=== PATIENT | female | born 1940 | race Caucasian/White ===

== ENCOUNTER 2016-10-19 09:41 | Inpatient (IN) ==
[2016-10-19] MEDS ORDERED: NS 1,000 ML IV ONE ×2 (10:14→15:56)
[2016-10-19 10:51] LABS: MANUAL DIFF NEEDED? NO
[2016-10-19 11:01] LABS: EOS# 0.05 X1000 (0.0-0.7); EOS% 0.8 % (0.0-10.0); HEMOGLOBIN 12.7 g/dL (12.0-16.0); LYMPH# 1.62 X1000 (1.2-3.4); LYMPH% 24.6 % (20.5-51.1); MCHC 34.3 g/dL (33-37); MCV 84.5 FL (81-99); MONO# 0.41 X1000 (0.11-0.59); MONO% 6.2 % (1.7-9.3); MPV 10.7 FL (7.4-10.4); NEUT% 68.4 % (42.2-75.2); PLT 183 X1000 (130-400); RBC 4.38 XMIL (4.2-5.4)
[2016-10-19 11:20] LABS: ALBUMIN 3.5 g/dL (3.5-5.0); MAGNESIUM 1.6 mg/dL (1.5-2.7); POTASSIUM 4.6 mmol/L (3.5-5.1); TOTAL BILIRUBIN 0.5 mg/dL (0.20-1.00); TOTAL PROTEIN 5.7 g/dL (6.3-8.3)
[2016-10-19 12:02] LABS: URINE SOURCE CLEAN CATCH
[2016-10-19 12:20] LABS: BILIRUBIN URINE SMALL (NEGATIVE); BLOOD URINE TRACE-LYSED (NEGATIVE); CLARITY CLEAR (CLEAR); COLOR ORANGE; GLUCOSE URINE 100 mg/dL (NEGATIVE); LEUKOCYTES URINE MODERATE (NEGATIVE); NITRITE URINE POSITIVE (NEGATIVE); PH URINE 5.5; PROTEIN URINE 100 mg/dL (NEGATIVE); SP GRAVITY URINE 1.025
[2016-10-19] MEDS ORDERED: ROCEPHIN 1 GM/NS 1 GM/50 ML IVPB IV ONE (12:28)
[2016-10-19 12:41] LABS: URINE CAST NONE SEEN /LPF; URINE CRYSTAL NONE SEEN /HPF; URINE CULTURE NEEDED? YES; URINE EPITHELIAL CELLS <10 /HPF (<10); URINE RBC <10 /HPF (<10)
--- NOTE | 2016-10-19 14:49 | PROVIDER DOCUMENTATION ---
This chart was entered by Kathy Porras Scribe, acting as scribe for Ronan Matos MD. HPI-General Adult - General Chief Complaint: Diarrhea Stated Complaint: DIARRHEA Time Seen by Provider: 10/19/16 09:46 Source: patient Allergies/Adverse Reactions: Patient Allergies Allergy/AdvReac Type Severity Reaction Status Date / Time No Known Allergies Allergy Verified 10/19/16 10:11 Home Medications: Home Medication List Medication Instructions Recorded Confirmed Last Taken Type ATORVAstatin [Lipitor] 10 mg PO DAILY 10/19/16 10/19/16 10/18/16 History Anastrozole [Arimidex] 1 mg PO DAILY 10/19/16 10/19/16 10/18/16 History Aspirin 81 mg PO DAILY 10/19/16 10/19/16 10/18/16 History Carvedilol 25 mg PO BID 10/19/16 10/19/16 10/18/16 History Clonidine HCl [Clonidine HCl] 0.1 mg PO DAILY 10/19/16 10/19/16 10/19/16 History Clopidogrel Bisulfate [Plavix] 75 mg PO DAILY 10/19/16 10/19/16 10/18/16 History Colchicine 0.3 mg PO DAILY 10/19/16 10/19/16 10/18/16 History Cyanocobalamin (Vitamin B-12) 1,000 mcg PO DAILY 10/19/16 10/19/16 10/18/16 History [Vitamin B12] Cyclosporine 0.05% Oph Drops 1 each BOTH EYES BID 10/19/16 10/19/16 10/18/16 History [Restasis 0.05% Oph Drops] Digoxin 125 mcg PO DAILY 10/19/16 10/19/16 10/18/16 History Donepezil [Aricept] 10 mg PO DAILY 10/19/16 10/19/16 10/18/16 History Duloxetine [Cymbalta] 60 mg PO DAILY 10/19/16 10/19/16 10/18/16 History Insulin Detemir [Levemir] 36 unit SUBQ DAILY 10/19/16 10/19/16 10/18/16 History Insulin Lispro [Humalog] 15 unit SQ AC 10/19/16 10/19/16 10/19/16 History Iron,Carbonyl/Ascorbic Acid [Iron 1 tab PO DAILY 0410/19/16 10/18/16 History 100-Vitamin C Tablet] Lisinopril [Lisinopril] 20 mg PO DAILY 10/19/16 10/19/16 10/18/16 History Nifedipine E.r. [Adalat cc] 30 mg PO DAILY 10/19/16 10/19/16 10/18/16 History Pantoprazole [Protonix] 40 mg PO DAILY 10/19/16 10/19/16 10/18/16 History Tramadol HCl [Ultram] 50 mg PO Q6HR PRN 10/19/16 10/19/16 10/18/16 History - History of Present Illness -Gen Adult Nature of Presenting Problems: PT IS A 76YOF PRESENTING TO THE ED C/O DIARRHEA. PT STATES SHE HAS A HX OF GALLBLADDER DZ AND SURGERY, FOLLOWED BY THE FLU THEN PNEUMONIA, PT STATES SHE NOTICED BLOOD IN HER BM A FEW WEEKS PRIOR AND DIARRHEA HAS BEEN INTERMITTENT FOR SEVERAL WEEKS NOW AND GETTING WORSE. PT STATES DECREASED APPETITE AND WEAKNESS. NO OTHER COMPLAINTS AT THIS TIME. PT WAS IS REHAB 2 WEEKS AGO AND WHEN DC'D SHE SAW THE BLOOD IN BM BUT NONE SINCE. Location of Pain/Injury: reports: abdomen Pain Radiation: reports: no radiation Quality of Pain: reports: aching Severity: reports: mild Onset/Duration: reports: gradual, other (SEVERAL WEEKS) Timing: reports: still present, intermittent Context/Activities at Onset: reports: light activity Modifying Factors: improves with: nothing Associated Symptoms: reports: diarrhea, fatigue, loss of appetite, malaise, weakness. denies: back/neck pain, chest pain, constipation, nausea, vomiting, trouble walking Similar Symptoms Previously?: Yes (CHOLITIS) Recently seen or treated by another doctor?: No Review of Systems - Adult - REVIEW OF SYSTEMS - ADULT Constitutional: reports: see HPI, fatique. denies: chills, fever Eyes: reports: no symptoms reported Ears, Nose, Mouth & Throat: reports: no symptoms reported Cardiovascular: reports: no symptoms reported Respiratory: reports: no symptoms reported Gastrointestinal: reports: see HPI, abdominal pain, diarrhea, poor appetite. denies: constipation, nausea, vomiting Genitourinary: reports: no symptoms reported Musculoskeletal: reports: no symptoms reported Integumentary: reports: no symptoms reported Neurological: reports: no symptoms reported Psychiatric: reports: no symptoms reported Endocrine: reports: no symptoms reported Hematologic/Lymphatic: reports: no symptoms reported Allergic/Immunologic: reports: no symptoms reported All Other Systems: Reviewed and Negative Past History - Adult - PAST MEDICAL HISTORY-ADULT Review of Records: reports: Old Records Reviewed, Nursing Assessment Review, Medications Reviewed, Social history reviewed & non-contributory. Major Childhood Illnesses: reports: denies history Cardiovascular: reports: CAD, CHF, HTN, hyperlipidemia, DC Respiratory: reports: sleep apnea Gastrointestinal: reports: colitis, GERD, pancreatitis Obstetrical/Gynecological: reports: denies history Genitourinary: reports: denies history Musculoskeletal: reports: denies history Neurological: reports: CVA Psychiatric: reports: anxiety Endocrine/Immune: reports: Diabetes, thyroid disorder Other Conditions: reports: other - PRIOR SURGERIES/PROCEDURES Surgical/Procedure History: reports: recent surgery, hysterectomy, tonsillectomy , hernia repair, other (mastectomy ) - PRIOR HOSPITALIZATIONS Prior Hospitalizations: reports: for other non-related - IMMUNIZATION STATUS Childhood Immunizations: See Nurse Assessment Flu Vaccine: See Nurse Assessment - FAMILY HISTORY Family History: reviewed, not pertinent Physical Exam-General - PHYSICAL EXAM-ADULT Initial Vital Signs Reviewed: Yes - CONSTITUTIONAL General Appearance: appears well, alert, mild distress, anxious. negative: no apparent distress - EYES Eyes: PERRL/EOMI, pink conjunctivae, fundi clear, no AV nicking - HEAD, EARS, NOSE, MOUTH & THROAT HENMT: normocephalic/atraumatic, moist mucous membranes, normal ENT inspection, TMs normal, pharynx normal - NECK Neck: non-tender, full range of motion, supple, normal inspection - RESPIRATORY Respiratory: chest non-tender, lungs clear, normal breath sounds, no pleuratic chest pain, no respiratory distress, no accessory muscle use - CARDIOVASCULAR Cardiovascular: normal peripheral pulses, regular rate, rhythm, no edema, no gallop, no JVD, no murmur - GASTROINTESTINAL (ABDOMEN) Abdominal Exam: normal bowel sounds, soft, no organomegaly, no pulsatile mass, tenderness. 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 as tested, grossly normal, no motor/sensory deficits - PSYCHIATRIC Psych/Mental Status: normal thought content, normal thought process, oriented x 3, anxious Progress - PLAN OF CARE/RESULTS Progress/Plan/Lab Results: Vital Signs - 8 hr 10/19/16 10:07 Temperature 97.5 F L Pulse Rate 63 Respiratory Rate 18 Blood Pressure 128/69 O2 Sat by Pulse Oximetry 97 Orders Category Date Time Status Saline Loc DIRECTED Care 10/19/16 10:14 Active NPO Diet 10/19/16 10:14 Active AMYLASE [CHEM] Stat Lab 10/19/16 10:14 Uncollected CBC WITH ELECTRONIC DIFF [HEME] Stat Lab 10/19/16 10:14 Uncollected COMPREHENSIVE METABOLIC PANEL [CHEM] Stat Lab 10/19/16 10:14 Uncollected LIPASE [CHEM] Stat Lab 10/19/16 10:14 Uncollected MAGNESIUM [CHEM] Stat Lab 10/19/16 10:14 Uncollected TROPONIN T Stat Lab 10/19/16 10:14 Uncollected URINALYSIS W/POSS RFLX CULT [URINALYSIS] Stat Lab 10/19/16 10:14 Uncollected 0.9% Sodium Chloride Inj [Ns] 1,000 ml Med 10/19/16 10:14 Active IV 500 mls/hr Result Diagrams: 10/19/16 10:33 10/19/16 10:33 - CONSULTS/PCP/HOSPITALIST Notification Time Discussed: 15:57 Reason/Comments: Admit to Dr. Hyman Consult Disposition: Admit Departure - Departure Time of Disposition Decision: 15:58 DIAGNOSIS: Generalized weakness, Elevated lipase, Dehydration Diarrhea Qualifiers: Diarrhea type: unspecified type Qualified Code(s): R19.7 - Diarrhea, unspecified Disposition: ADMITTED INPATIENT 09 Certified Medical Emergency: Emergent Condition: Stable Referrals and Follow-Ups: Aron Espinal MD [Primary Care Provider] - This chart was documented by the indicated scribe, (Kathy Porras Scribe) and accurately reflects the services I performed and decisions made by , Ronan Matos MD, as attested by the provider's signature.
--- NOTE | 2016-10-19 15:07 | Diag Imaging Result Document ---
PROCEDURE NAME: RENAL STONE SEARCH - 10/19/2016 CT RENAL STONE SEARCH WITHOUT CONTRAST: A dose-reduction protocol was used. COMPARISON: Compared with the with contrast CT abdomen and pelvis of 2016. FINDINGS: There is no hydronephrosis or perinephric edema identified. There is an apparent tiny nonobstructing stone at the lower left kidney. There is no other renal stone identified. There is a left anterior pelvic wall hernia which contains part of the left anterior aspect of the urinary bladder, similar to the previous exam. The spleen is mildly prominent and contains a low-density lesion, similar to the previous exam. There is no obvious bowel obstruction. There is no free air. IMPRESSION: Apparent tiny nonobstructing stone in lower left kidney. No obstructing renal stone. No hydronephrosis. Left anterior pelvic wall hernia which contains part of the anterior urinary bladder, similar to the previous exam. Mildly prominent spleen which contains a low-density lesion , similar to the previous exam. If other occult abnormality is suspected clinically, contrast-enhanced exam could be considered. [facility]ITAL[facility]asha[facility]
--- NOTE | 2016-10-19 18:09 | HISTORY AND PHYSICAL ---
CHIEF COMPLAINT: Diarrhea and weakness. HISTORY OF PRESENT ILLNESS: A 76-year-old white female patient not feeling well last 3 days. The patient had diarrhea multiple times, watery stool. No blood or mucus in the stool. The patient did have some abdominal pain which was diffuse. The patient was feeling very weak, at times unsteady. The patient was taking Imodium with partial relief. The patient came to the emergency room. Evaluated by ER physician. Initial blood pressure was low normal but then her blood pressure was going up. Her workup in the ER did reveal elevated lipase. Patient was very weak. Workup in the ER also revealed UTI. The patient was symptomatic. Patient lives by herself. High risk for fall. Has uncontrolled diabetes. Concern was about hypoglycemia and we decided to admit the patient for further care. The patient recently discharged from longterm after rehab. The patient does have very labile blood pressure and labile blood sugar. The patient did have chills, low-grade fever last 2-3 days. Mild cough. No expectoration. Denied any hemoptysis. No typical chest pain, palpitation, orthopnea or PND. The patient was feeling weak all over. Vague abdominal pain. Mild dysuria. No gross hematuria. No vaginal discharge. Unquantified weight loss. Oral intake was poor. No heat or cold intolerance. No focal numbness, tingling, weakness. No leg swelling. No heat or cold intolerance. No major hypoglycemic episode. No seizure-type episode. No further history available at this time. ALLERGIES: No known drug allergy. HOME MEDICATIONS: Include the patient is on Lipitor, Coreg, Plavix, colchicine, vitamin B12, cyclosporine, Lanoxin, Aricept, Cymbalta, Levemir, iron supplement, lisinopril, nicardipine, Prilosec. PAST MEDICAL HISTORY: Significant for longstanding diabetes mellitus complicated by peripheral neuropathy, hypertension, hyperthyroidism, chronic diarrhea, recent cholecystectomy, recurrent pancreatitis, history of breast cancer, CVA with minimal right-sided weakness, dementia, iron- deficiency anemia, gout, osteoarthritis, generalized weakness, recurrent UTI, hyperlipidemia. PERSONAL HISTORY: . Lives by herself. Nonsmoker. Denied alcohol or substance abuse. FAMILY HISTORY: Significant for coronary artery disease, hyperlipidemia, stroke and diabetes. PHYSICAL EXAMINATION: GENERAL: Elderly white female patient in mild distress. VITAL SIGNS: Her initial blood pressure 128/69, her blood pressure went up to 184/73, pulse 63, respirations 20, temperature 98.2 degrees. SKIN: Normal turgor. No rash or petechiae. HEENT: Head atraumatic, normocephalic. [place] conjunctivae. Anicteric sclerae. Extraocular muscle movement normal. Fundus cannot be penetrated. Good oral hygiene. Dry oral mucosa. Ears and nose benign. NECK: Supple. No JVD, thyromegaly or lymphadenopathy. CHEST: Bilateral good air entry present. No rales. Few basal crepitations. CARDIOVASCULAR: S1 and S2 heard. No gallop or thrill. ABDOMEN: Soft, globular. Mild tenderness left lower quadrant and epigastrium. No guarding or rigidity. RECTAL: Exam deferred. EXTREMITIES: No cyanosis, clubbing. No acute DVT. AIRPORT RAMP AGENT: Alert, awake able to move all 4 limbs. Minimal weakness right upper limb. LABORATORY DATA: Revealed hemoglobin 12.7, hematocrit 37, WBC count 6.59, platelet count was 183,000. Sodium 133, potassium 4.6, BUN 21, creatinine 1.1. Amylase was 494, lipase 556. Urinalysis. Nitrite was positive, moderate WBC. The patient had renal CT done which revealed tiny nonobstructing stones in the lower left kidney, left anterior pelvic wall hernia which contained part of the anterior urinary bladder, similar to previous exam, mildly prominent spleen. CONSIDERATION: 1. Diarrhea, could be due to colitis. 2. Urinary tract infection. Blood work suggestive of pancreatitis. 3. Diabetes mellitus. 4. Hypertension. 5. Hyperlipidemia. 6. Gastritis and reflux disease. 7. History of cerebrovascular accident. 8. Weakness. 9. History of breast cancer. 10. Clinical dehydration. PLAN: Admit the patient. IV antibiotics. Urine culture, stool workup. Monitor Accu-Chek. Empirically started patient on Flagyl and Rocephin. Monitor for hypoglycemia. Overall plan discussed with the patient and she is in agreement. cc: Aron Espinal MD
[2016-10-19] MEDS: RESTASIS 0.05% OPH DROPS BOTH EYES SCH (20:52)
[2016-10-19] MEDS: COREG PO SCH (20:52)
[2016-10-19] MEDS: LIPITOR PO SCH (20:52)
[2016-10-19] MEDS: PROTONIX IV SCH (20:53)
[2016-10-19] MEDS: SODIUM CHLORIDE 0.9% INJ SCH (20:53)
[2016-10-19] MEDS: HUMALOG SUBQ SCH (23:01)
[2016-10-20] MEDS ORDERED: CATAPRES PO PRN (06:57)
[2016-10-20] MEDS ORDERED: INSULIN PEN NEEDLES ONE (07:29)
[2016-10-20 07:35] LABS: MANUAL DIFF NEEDED? NO
--- NOTE | 2016-10-20 07:36 | PROGRESS NOTE ---
DATE: 10/20/2016 SUBJECTIVE: Ms. Roth is feeling some better today. She denied any nausea or vomiting. No diarrhea. Denied any chest pain. Her blood pressure was staying high. The patient admitted with diarrhea. Stool for occult blood was negative. Other stool workup result is pending. PHYSICAL EXAMINATION: Vital Signs: Her vital signs reviewed. Neck: Supple. No JVD. Lungs: Bibasilar crepitations. Heart: S1 and S2 heard. Abdomen: Soft, globular. Bowel sounds present. MORTGAGE CLERK: Alert, awake. Able to move all 4 limbs. CONSIDERATIONS: 1. Diarrhea. 2. Pancreatitis. 3. Hypertension. 4. Diabetes mellitus. 5. Gastritis and reflux disease. 6. Urinary tract infection. PLAN: I am going to start the patient on Flagyl empirically. Continue rest of the treatment. Optimize blood pressure medicine. Physical therapy. Overall plan discussed with the patient and she is in agreement. cc: Aron Espinal MD
[2016-10-20 07:47] LABS: AMYLASE 117 U/L (20-200); DIGOXIN 1.4 ng/mL (0.9-2.0); HDL 41 mg/dL (45-65); LDL 64 mg/dL; LIPASE 93 U/L (13-60); MAGNESIUM 1.5 mg/dL (1.5-2.7); TRIGLYCERIDES 114 mg/dL (35-135); VLDL 23 mg/dL
[2016-10-20 07:49] LABS: BASO% 0.2 % (0.0-0.8); EOS# 0.14 X1000 (0.0-0.7); HEMATOCRIT 37.3 % (37.0-47.0); LYMPH% 36.1 % (20.5-51.1); MCH 29.2 PG (27-31); MCHC 34.9 g/dL (33-37); MCV 83.8 FL (81-99); MONO# 0.34 X1000 (0.11-0.59); MONO% 7.2 % (1.7-9.3); MPV 10.6 FL (7.4-10.4); NEUT% 53.5 % (42.2-75.2); PLT 168 X1000 (130-400); RBC 4.45 XMIL (4.2-5.4)
[2016-10-20 07:52] LABS: AGAP 13; ALBUMIN 3.4 g/dL (3.5-5.0); ALKALINE PHOSPHATASE 138 U/L (32-104); BUN 15 mg/dL (8-22); CALCIUM 8.6 mg/dL (8.8-10.2); CHLORIDE 103 mmol/L (98-107); COSMO 276; GOT 54 U/L (10-30); GPT 59 U/L (10-36); SODIUM 138 mmol/L (136-145); TCO2 22 mmol/L (25-35)
[2016-10-20 08:00] LABS: FREE T4 1.6 ng/dL (0.93-1.70)
[2016-10-20 08:24] LABS: HEMOGLOBIN A1C 8.1 % (4.8-6.0)
[2016-10-20] MEDS ORDERED: LEVEMIR SUBQ SCH ×2 (09:00)
[2016-10-20] MEDS ORDERED: ADALAT CC PO SCH (09:00)
[2016-10-20] MEDS ORDERED: PRINIVIL PO SCH (09:00)
[2016-10-20] MEDS: CYMBALTA PO SCH (09:49)
[2016-10-20] MEDS: COLCRYS PO SCH (09:50)
[2016-10-20] MEDS: ADALAT CC PO SCH (09:50)
[2016-10-20] MEDS: COREG PO SCH ×2 (09:50→22:00)
[2016-10-20] MEDS: ASPIRIN PO SCH (09:52)
[2016-10-20] MEDS: ARICEPT PO SCH (09:52)
[2016-10-20] MEDS: PLAVIX PO SCH (09:52)
[2016-10-20] MEDS: PRINIVIL PO SCH ×2 (09:52→22:00)
[2016-10-20] MEDS: ICAR-C PO SCH (09:52)
[2016-10-20] MEDS: RESTASIS 0.05% OPH DROPS BOTH EYES SCH ×2 (09:53→22:10)
[2016-10-20] MEDS: VITAMIN B-12 PO SCH (09:53)
[2016-10-20] MEDS: ARIMIDEX PO SCH (09:53)
[2016-10-20] MEDS: LANOXIN PO SCH (09:55)
[2016-10-20] MEDS: LOVENOX SUBQ SCH (09:59)
[2016-10-20] MEDS: HUMALOG SUBQ SCH ×3 (11:00→22:21)
[2016-10-20] MEDS: ROCEPHIN 1 GM/NS 1 GM/50 ML IVPB IV SCH (14:23)
[2016-10-20] MEDS: FLAGYL 500 MG/NS 500 MG/100 ML IVPB IV SCH ×2 (15:27→22:20)
[2016-10-20] MEDS: PROTONIX IV SCH (20:00)
[2016-10-20] MEDS: LIPITOR PO SCH (22:00)
[2016-10-20] MEDS: SODIUM CHLORIDE 0.9% INJ SCH (22:07)
[2016-10-21] MEDS: HUMALOG SUBQ SCH ×5 (06:16→22:26)
[2016-10-21] MEDS: FLAGYL 500 MG/NS 500 MG/100 ML IVPB IV SCH ×3 (06:23→23:54)
[2016-10-21] MEDS ORDERED: MAGNESIUM SULFATE 2 GM/S.W.I. 2 GM/50 ML IVPB IV ONE (06:53)
[2016-10-21] MEDS ORDERED: LEVEMIR SUBQ SCH (06:56)
--- NOTE | 2016-10-21 07:20 | PROGRESS NOTE ---
DATE: 10/21/2016 SUBJECTIVE: Ms. Roth is doing fair. The patient does have mild nausea, no vomiting. Her diarrhea is better. No high-grade fever, chills. Her blood pressure is still staying high. The patient is on Procardia, Coreg, clonidine, lisinopril. I am going to add diuretics today. No chest pain. OBJECTIVE: Vital Signs: Reviewed. Neck: Supple. No JVD. Lungs: Bilateral good air entry present. CVS: S1 and S2 heard. Abdomen: Soft, globular. Bowel sounds present. MOLDING AND TRIM INSTALLER: Alert, awake. Able to move all 4 limbs. Her Accu-Chek results reviewed. CONSIDERATION/PLAN: 1. The patient admitted with recurrent pancreatitis, diarrhea. Since she is in the hospital, she did not have any stool, so we were not able to check her for Clostridium difficile toxin or colitis. 2. The patient does have a urinary tract infection but urine culture was no growth. The patient is on Rocephin. I empirically started patient on Flagyl. 3. Emergent hypertension. I am optimizing her blood pressure management. 4. Diabetes mellitus. I am gradually increasing her insulin. 5. The patient does have history of breast cancer. 6. Cerebrovascular accident. 7. Gastritis. 8. Possible gastroparesis. Overall plan discussed with the patient and she is in agreement. cc: Aron Espinal MD
[2016-10-21 07:33] LABS: ALBUMIN 3.2 g/dL (3.5-5.0); CALCIUM 8.3 mg/dL (8.8-10.2); POTASSIUM 4.1 mmol/L (3.5-5.1); TOTAL BILIRUBIN 0.25 mg/dL (0.20-1.00); TOTAL PROTEIN 5.7 g/dL (6.3-8.3)
[2016-10-21] MEDS ORDERED: BUMEX PO SCH (09:00)
[2016-10-21] MEDS: LOVENOX SUBQ SCH (10:08)
[2016-10-21] MEDS: COLCRYS PO SCH (10:08)
[2016-10-21] MEDS: RESTASIS 0.05% OPH DROPS BOTH EYES SCH ×2 (10:08→23:43)
[2016-10-21] MEDS: BUMEX PO SCH ×2 (10:08→23:44)
[2016-10-21] MEDS: LANOXIN PO SCH (10:09)
[2016-10-21] MEDS: COREG PO SCH ×2 (10:09→23:43)
[2016-10-21] MEDS: ADALAT CC PO SCH (10:09)
[2016-10-21] MEDS: PLAVIX PO SCH (10:09)
[2016-10-21] MEDS: PRINIVIL PO SCH ×2 (10:10→23:43)
[2016-10-21] MEDS: ICAR-C PO SCH (10:10)
[2016-10-21] MEDS: VITAMIN B-12 PO SCH (10:10)
[2016-10-21] MEDS: ARICEPT PO SCH (10:10)
[2016-10-21] MEDS: CYMBALTA PO SCH (10:10)
[2016-10-21] MEDS: ASPIRIN PO SCH (10:10)
[2016-10-21] MEDS: ARIMIDEX PO SCH (10:11)
--- NOTE | 2016-10-21 12:50 | Diag Imaging Result Document ---
PROCEDURE NAME: US ABDOMEN-COMPLETE - 10/21/2016 ULTRASOUND ABDOMEN, COMPLETE: COMPARISON: CT abdomen and pelvis 10/19/2016. FINDINGS: The gallbladder is absent. The common bile duct measures 5.6 mm which is normal. The liver, pancreas, and both kidneys are normal. There is a large calcification in the spleen measuring 1.5 cm stable from the prior CT. No other abnormality visible in the spleen by ultrasound. Aorta, IVC, and main portal vein are patent. Spleen size is 11.7 x 10.5 x 4.1 cm. IMPRESSION: No acute abnormality.
[2016-10-21] MEDS: ROCEPHIN 1 GM/NS 1 GM/50 ML IVPB IV SCH (16:46)
[2016-10-21] MEDS: MIRALAX PO SCH ×2 (16:54→23:41)
--- NOTE | 2016-10-21 18:15 | CONSULTATION ---
DATE OF CONSULTATION: 10/21/2016 REASON FOR CONSULTATION: Recurrent pancreatitis. HISTORY OF PRESENT ILLNESS: Ms. Roth is a 76-year-old female who has being admitted on 10/19/2016 with symptoms of abdominal pain in the periungual region, diarrhea, weakness and dehydration. On admission, she was noted to have elevated lipase of 556 and amylase of 494 consistent with pancreatitis. The patient had 4 episodes of pancreatitis so far. This is the 4th episode. The 1st episode was in April and prior to this one, the last episode was in August. After the August episode she had extensive workup which showed evidence of gallbladder dysfunction and she had a cholecystectomy done by Dr. Chisholm in August 2016. Postoperatively she had gone to the rehab and after release from rehab she developed flu, lasted for 2 weeks followed by bronchopneumonia followed by complaints of abdominal pain and diarrhea. The patient denies any history of alcohol. She did complain of some low-grade fever and chills at home prior to admission. Since being in the hospital she has been given IV fluids and conservative management and her amylase and lipase have trended down. She denies any vomiting, nausea, vomiting blood or passing blood in the stools. Prior to admission she had diarrhea but since being in the hospital the last 2 days she has not had a bowel movement. She denies noticing any black stools or blood in the stools in the past. PAST MEDICAL HISTORY: 1. Long-standing diabetes mellitus complicated by diabetic peripheral neuropathy. 2. Hypertension. 3. Hypothyroidism. 4. Chronic diarrhea. 5. Gallbladder dysfunction requiring cholecystectomy in August 2016. 6. Recurrent pancreatitis 4th episode on this admission. 7. History of breast cancer. 8. CVA with minimal right-sided weakness. 9. Dementia. 10. Iron deficiency anemia. 11. Gout. 12. Osteoarthritis. 13. Recurrent UTIs. 14. Hyperlipidemia. PAST SURGICAL HISTORY: Cholecystectomy. PERSONAL HISTORY: She is a . She lives by herself. She is a nonsmoker. Denies alcohol, tobacco, illicit drug abuse. FAMILY HISTORY: Noncontributory. Denies history of recurrent pancreatitis in the family or pancreatic cancer in the family. REVIEW OF SYSTEMS: Denies any current fevers, rigors, chills, chest pain, shortness of breath, dyspnea. Denies any genitourinary complaints. Denies history of vomiting or passing blood in the stools. Her abdominal pain is improving since admission. MEDICATIONS IN THE HOSPITAL INCLUDE: Anastrozole, aspirin, atorvastatin, bisacodyl, Bumex, carvedilol, clonidine, Plavix, Colchicine, vitamin B12, cyclosporine, Digoxin, duloxetine, donepezil which is Aricept and duloxetine which is Cymbalta, Lovenox, metronidazole, insulin, detemir, Levemir and sliding scale Humalog, Iron C b.i.d., lisinopril, nifedipine ER Protonix once daily, MiraLAX b.i.d., ceftriaxone and magnesium sulfate. She is currently on a diabetic diet. PHYSICAL EXAMINATION: Vital Signs: Temperature 97.7 degrees, pulse rate of 74 , respiratory rate 18, blood pressure 118/58, saturating 90% on room air. Body weight of 145 pounds. BMI of 23.4 kg. General: Moderately well-nourished, lying in bed, in no acute distress. HEENT: No pallor. No icterus. Pupils equal, react to light. Neck: Supple. Chest: Decreased breath sounds. Heart: Regular rhythm. No murmur. Abdomen: Mild discomfort. No rebound or guarding. Bowel sounds are present, hypoactive. No rebound. No guarding. No hepatosplenomegaly. Extremities: No cyanosis, clubbing, edema. Neurologic: She is alert, awake. Oriented. LABS: Hemoglobin and hematocrit is 13 and 37.3, white count 4.71, platelet count 160,000. MCV of 83.8. Sodium 130, potassium 4.1, chloride 100, bicarb 22, anion gap of 14, BUN of 18, creatinine 1, glucose of 281. Total bilirubin is 0.25. AST 23, ALT 40. Alkaline phosphatase was 118. Total protein 5.7, albumin of 3.2. Her amylase was 494 on 10/19 and lipase of 996 on 10/19 and lipase has now trended down to 93 yesterday. Urinalysis showing positive nitrites, positive white cells suggesting UTI. Digoxin was 1.4. Her urine culture showing no growth. Stools showing negative occult blood. Had a renal CT done which showed stone in the lower left kidney , nonobstructing renal stones. No hydronephrosis. Left anterior pelvic wall hernia which contains part of the urinary bladder anterior wall similar to previous exam. Mildly prominent spleen which contained a low-density lesion similar to previous exam. Her intraoperative cholangiogram done on 08/26/[address] Chisholm which showed free flow of dye into the duodenum without evidence of any extrahepatic stones or obstruction and dye also filled the pancreatic duct which is nondilated. IMPRESSION AND PLAN: 1. Recurrent pancreatitis of unclear etiology. Suspect choledocholithiasis versus medications. Her medications at home include Aricept, Cymbalta, Prozac which can cause potential pancreatitis. 2. UTI. 3. Constipation and diarrhea. RECOMMENDATIONS: We will continue on IV fluids, we will keep her on low-fat diet. We will keep a good control of diabetes. We will try to avoid potential pancreatotoxic medications like Aricept, Cymbalta, Prozac all for now if okay with the primary team to avoid recurrent pancreatitis. We will also order ultrasound of the abdomen to evaluate for common bile duct and pancreas duct for any evidence of any retained stones. If the above workup is unrevealing, then we may need a magnetic resonance cholangiopancreatography to evaluate for any kind of stones in the distal common bile duct or pancreatic duct. Based on the above we will decide if the patient will need ERCP as an outpatient. The patient will be on low-fat diet and we will keep the patient on Protonix once daily for GI prophylaxis. We will keep her on bowel regimen with MiraLAX twice daily and Dulcolax at bedtime. The above plan was discussed with the patient. All questions answered. cc: MD Aron Doty MD MTDD
[2016-10-21] MEDS ORDERED: DULCOLAX PR SCH (21:00)
[2016-10-21] MEDS: LIPITOR PO SCH (23:43)
[2016-10-21] MEDS: SODIUM CHLORIDE 0.9% INJ SCH (23:48)
[2016-10-21] MEDS: PROTONIX IV SCH (23:48)
[2016-10-22] MEDS: FLAGYL 500 MG/NS 500 MG/100 ML IVPB IV SCH ×3 (02:23→17:34)
[2016-10-22] MEDS ORDERED: LEVEMIR SUBQ SCH (07:06)
[2016-10-22 07:52] LABS: ALBUMIN 3.5 g/dL (3.5-5.0); CALCIUM 8.7 mg/dL (8.8-10.2); POTASSIUM 4.1 mmol/L (3.5-5.1); TOTAL BILIRUBIN 0.28 mg/dL (0.20-1.00); TOTAL PROTEIN 6.1 g/dL (6.3-8.3)
--- NOTE | 2016-10-22 08:10 | PROGRESS NOTE ---
DATE: 10/22/2016 SUBJECTIVELY: Ms. Roth is feeling better and tolerating food well. No diarrhea, nausea or vomiting. No high-grade fever or chills. Blood pressure doing better. Denied any chest pain. The patient is ambulating well. OBJECTIVE: Her vital signs reviewed. Lungs with bilateral good air entry present. CVS: S1 and S2 heard. Abdomen: Soft, globular. Bowel sounds present. Extremities: No cyanosis or clubbing. No acute DVT. MARINE CHRONOMETER ASSEMBLER: Alert, awake and able to move all 4 limbs. CONSIDERATION: Recurrent pancreatitis. Retail Office Associate recommendation noted. Abdominal ultrasound results reviewed. PLANS: 1. I am going to discontinue Aricept, decrease Cymbalta to 30 mg. 2. Uncontrolled hypertension, I added Bumex. Blood pressure doing better. We will continue current treatment. 3. Diabetes mellitus. I am going to increase her Lantus gradually. 4. History of CVA. 5. Breast cancer. 6. Peripheral neuropathy. 7. Osteoarthritis. 8. Morning blood work result is pending. 9. We will continue current treatment. If clinical condition permits, we will plan discharging patient home tomorrow. I talked to patient about staying in assisted living or halfway. Also discussed with her son, she is high risk for fall and injuring herself but patient refused. The son is in agreement. cc: Aron Espinal MD
[2016-10-22] MEDS ORDERED: CYMBALTA PO SCH (09:00)
[2016-10-22 10:21] LABS: HEPATITIS PROFILE ACUTE SEE COMMENTS
--- NOTE | 2016-10-22 10:41 | Diag Imaging Result Document ---
PROCEDURE NAME: MRI ABDOMEN W/WO CONTRAST - 10/21/2016 MRI ABDOMEN WITHOUT AND WITH INTRAVENOUS CONTRAST WITH MRCP: COMPARISON: CT abdomen and pelvis 10/19/2016, 06/16/2013. FINDINGS: The gallbladder is absent. There is no dilation of the biliary tree. The main pancreatic duct is normal. Pancreatic anatomy is normal. The liver parenchyma is normal. There is a small nodule in the spleen measuring about 19.5 mm. This is hyperintense on the T2 weighted images and ISO hypointense on T1 weighted images. The signal void in the inferior pole of the spleen corresponds with a large benign calcification. IMPRESSION: 1. Slight interval increase in size of the hypoenhancing nodule in the spleen. This is changing very slowly indeed. This may represent a neoplasm or a chronic inflammatory process such as a small fungal abscess. 2. No abnormality of the pancreaticobiliary tree.
[2016-10-22] MEDS: COLCRYS PO SCH (11:25)
[2016-10-22] MEDS: VITAMIN B-12 PO SCH (11:35)
[2016-10-22] MEDS: ADALAT CC PO SCH (11:35)
[2016-10-22] MEDS: COREG PO SCH (11:36)
[2016-10-22] MEDS: ICAR-C PO SCH (11:36)
[2016-10-22] MEDS: BUMEX PO SCH (11:36)
[2016-10-22] MEDS: ARIMIDEX PO SCH (11:40)
[2016-10-22] MEDS: RESTASIS 0.05% OPH DROPS BOTH EYES SCH (11:42)
[2016-10-22] MEDS: MIRALAX PO SCH (11:43)
[2016-10-22] MEDS: PRINIVIL PO SCH (11:43)
[2016-10-22] MEDS: LOVENOX SUBQ SCH (11:43)
[2016-10-22] MEDS: PLAVIX PO SCH (11:43)
[2016-10-22] MEDS: ASPIRIN PO SCH (11:54)
[2016-10-22] MEDS: HUMALOG SUBQ SCH ×3 (12:22→16:33)
[2016-10-22] MEDS: LANOXIN PO SCH (12:33)
[2016-10-22] MEDS: ROCEPHIN 1 GM/NS 1 GM/50 ML IVPB IV SCH (17:34)
[2016-10-22 19:33] VITALS: BP 157/66
--- NOTE | 2016-11-18 21:07 | DISCHARGE SUMMARY ---
ADMISSION DATE: 10/19/2016 DISCHARGE DATE: 10/22/2016 FINAL DISCHARGE DIAGNOSES: 1. Colitis. 2. Urinary tract infection. 3. Recurrent pancreatitis. 4. Diabetes mellitus. 5. Hypertension. 6. Hyperlipidemia. 7. Gastritis and reflux disease. 8. History of cerebrovascular accident. 9. Breast cancer. 10. Weakness. 11. Dehydration. 12. Abnormal MRI of the spleen. 13. Iron-deficiency anemia. 14. Osteoarthritis. 15. History of gout. HOSPITAL COURSE: Ms. Roth is a 76-year-old, white female patient admitted with abdominal discomfort, diarrhea, weakness, clinical dehydration, vague abdominal pain. Her initial lipase and amylase were elevated consistent with pancreatitis. The patient was evaluated in the ER and admitted for further care. The patient also had some vague tenderness in the left lower quadrant. She had diarrhea. I entertained the possibility of colitis along with UTI and pancreatitis. The patient was treated with IV fluids, symptomatic treatment, IV antibiotics, close observation. Her clinical condition gradually improved. Her amylase and lipase improved. The patient started tolerating food well. No fever or chills. We decided to discharge the patient home. GI consultation obtained with Dr. Sifuentes who recommended MRI of the abdomen. Results reviewed and discussed with the patient. I re-evaluated patient in the evening and discharged her home. MRI of the abdomen revealed slight interval increase in the size of hypoenhancing nodule in the spleen which may represent neoplasm or chronic inflammatory process such as a small fungal abscess. No abnormality of the pancreatic or biliary tree. Abdominal ultrasound and CT scan results reviewed. Lab data revealed hemoglobin 13, hematocrit 37.3, WBC count 4.71, platelet count 168,000. Electrolytes were fairly benign. On the day of discharge her glucose was 216, BUN was 23, creatinine 1.1, admission amylase was 494, lipase was 556. Next day lipase went down to 93, amylase was 117. Urinalysis did reveal moderate WBC and Lanoxin level was 1.4. Hepatitis panel was benign. I advised patient to take medicine regularly. Monitor Accu-Chek. Fall precautions. Plenty of liquids orally. We will get her home health. Follow up with me in a week. In case of more distress, call us back or go to the emergency room. cc: Aron Espinal MD
== END 2016-10-22 20:46 | disposition home or self-care (01) ==
LOC: ED 09:41 → 3N 18:04
PROVIDERS: ADMIT Internal Medicine; ATTEND Internal Medicine

== ENCOUNTER 2019-07-25 13:33 | Inpatient (IN) ==
[2019-07-25] MEDS ORDERED: CATAPRES PO ONE (15:10)
--- NOTE | 2019-07-25 15:14 | EKG Report ---
Test Performed on : 07/25/2019 3:02:50 PM Test Reason : sob Blood Pressure : / mmHG Vent. Rate : 058 BPM Atrial Rate : 058 BPM P-R Int : 200 ms QRS Dur : 072 ms QT Int : 448 ms P-R-T Axes : 055 063 091 degrees QTc Int : 439 ms Sinus bradycardia. Possible Left atrial enlargement Septal infarct , age undetermined Abnormal ECG When compared with ECG of 14-JUN-2019 02:05, (Unconfirmed) Septal infarct is now present Nonspecific T wave abnormality no longer evident in Inferior leads Nonspecific T wave abnormality, improved in Lateral leads QT has lengthened Unconfirmed Result
--- NOTE | 2019-07-25 15:29 | Diag Imaging Result Doc PS360 ---
EXAM: CHEST-1 VIEW 07/25/2019 HISTORY: sob TECHNIQUE: AP portable upright at 1520 COMMENT: There is no evidence of acute cardiac or pulmonary disease. Compared to the previous study of 12/10/2017 the inspiration is less optimal but otherwise are has been no appreciable change. IMPRESSION: No acute disease. Electronically signed by Raphael Gutiérrez 07/25/2019 3:27 PM
[2019-07-25 16:09] LABS: BASO# 0.01 X1000 (0.0-0.2); BASO% 0.2 % (0.0-0.8); EOS# 0.18 X1000 (0.0-0.7); EOS% 3.1 % (0.0-10.0); HEMATOCRIT 33.2 % (37.0-47.0); HEMOGLOBIN 10.6 g/dL (12.0-16.0); LYMPH# 2.04 X1000 (1.2-3.4); LYMPH% 34.6 % (20.5-51.1); MCH 28.7 PG (27-31); MCHC 31.9 g/dL (33-37); MONO# 0.34 X1000 (0.11-0.59); MONO% 5.8 % (1.7-9.3); MPV 10.8 FL (7.4-10.4); NEUT# 3.33 X1000 (1.4-6.5); NEUT% 56.3 % (42.2-75.2); PLT 140 X1000 (130-400); RBC 3.69 XMIL (4.2-5.4); RDW 13.1 % (11.5-14.5)
[2019-07-25 16:16] LABS: INR 1.05; PROTIME 13.8 Seconds (11.0-16.0)
[2019-07-25 16:23] LABS: ALB/GLOB RATIO 1.7; ALBUMIN 3.2 g/dL (3.5-5.0); CALCIUM 9.1 mg/dL (8.8-10.2); CREATININE 1.8 mg/dL (0.5-0.9); POTASSIUM 4.7 mmol/L (3.5-5.1); TOTAL BILIRUBIN 0.23 mg/dL (0.20-1.00); TOTAL PROTEIN 5.1 g/dL (6.3-8.3)
--- NOTE | 2019-07-25 17:46 | PROVIDER DOCUMENTATION ---
This chart was entered by Sonia Vasquez Scribe, acting as scribe for Del Mina MD. HPI-General Adult - General Chief Complaint: B/P Problems Stated Complaint: HYPERTENSION Time Seen by Provider: 07/25/19 14:08 Source: patient Allergies/Adverse Reactions: Patient Allergies Allergy/AdvReac Type Severity Reaction Status Date / Time No Known Allergies Allergy Verified 04/04/19 19:38 Home Medications: Home Medication List Medication Instructions Recorded Confirmed Last Taken Type Carvedilol [Coreg] 25 mg PO BID 11/02/17 07/25/19 1 Day Ago History ~06/13/19 Clonidine [Catapres] 0.2 mg PO TID 11/02/17 07/25/19 12/09/17 History Clopidogrel [Plavix] 75 mg PO DAILY 11/02/17 07/25/19 1 Day Ago History ~06/13/19 Duloxetine [Cymbalta] 60 mg PO DAILY 11/02/17 07/25/19 1 Day Ago History ~06/13/19 Hydrocodone Bit/Acetaminophen 5 mg PO TID 11/02/17 07/25/19 12/09/17 History [Hydrocodon-Acetaminophen 5-325] Insulin Aspart [Novolog Flexpen] 100 unit SQ DIRECTED 11/02/17 07/25/19 12/09/17 History Insulin Detemir [Levemir Flextouch] 46 unit SQ DAILY 11/02/17 07/25/19 1 Day Ago History ~06/13/19 Nifedipine [Procardia Xl] 60 mg PO DAILY 11/02/17 06/14/19 1 Day Ago History ~06/13/19 Melatonin 3 mg PO QHS 04/04/19 07/25/19 1 Day Ago History ~06/13/19 Sennosides [Senna Laxative] 8.6 mg PO QHS 04/04/19 07/25/19 Unknown History Spironolactone 25 mg PO Q48H PRN PRN 04/04/19 07/25/19 1 Day Ago History ~06/13/19 Atorvastatin Calcium [Lipitor] 80 mg PO QHS 06/14/19 07/25/19 1 Day Ago History ~06/13/19 Carboxymethylcellulose Sodium 15 ml OPHTHALMIC (EYE) BID 06/14/19 07/25/19 Unknown History [Refresh Liquigel] Multivitamin,Therapeutic [Thera] 1 ea PO DAILY 06/14/19 06/14/19 Unknown History Triamcinolone Acetonide [Nasacort] 10.8 ml NS DAILY 06/14/19 06/14/19 Unknown History - History of Present Illness -Gen Adult Nature of Presenting Problems: Patient is a 79 year old female who presents to the ED via EMS with elevated blood pressure. Patient states having a nose bleed today around 0900. Reports shortness of breath. Denies chest pain. Quality of Pain: reports: none Severity: reports: mild Onset/Duration: reports: gradual Timing: reports: still present, getting worse Context/Activities at Onset: reports: light activity Associated Symptoms: reports: EENT symptoms (nose bleed), shortness of breath Similar Symptoms Previously?: Yes Recently seen or treated by another doctor?: No Review of Systems - Adult - REVIEW OF SYSTEMS - ADULT Constitutional: reports: no symptoms reported Eyes: reports: no symptoms reported Ears, Nose, Mouth & Throat: reports: see HPI, epistaxis. denies: sinus problem, nose pain Cardiovascular: reports: no symptoms reported. denies: chest pain Respiratory: reports: see HPI, shortness of breath. denies: cough, wheezing Gastrointestinal: reports: no symptoms reported Genitourinary: reports: dysuria Musculoskeletal: reports: no symptoms reported Integumentary: reports: no symptoms reported Neurological: reports: no symptoms reported Psychiatric: reports: no symptoms reported Endocrine: reports: no symptoms reported Hematologic/Lymphatic: reports: no symptoms reported Allergic/Immunologic: reports: no symptoms reported All Other Systems: Reviewed and Negative Past History - Adult - PAST MEDICAL HISTORY-ADULT Review of Records: reports: Old Records Reviewed, Nursing Assessment Review, Medications Reviewed, Social history reviewed & non-contributory. Major Childhood Illnesses: reports: denies history Cardiovascular: reports: A-Fib, CAD, CHF, HTN, hyperlipidemia, [place] Respiratory: reports: sleep apnea Gastrointestinal: reports: colitis, GERD, IBS, pancreatitis Obstetrical/Gynecological: reports: denies history Genitourinary: reports: kidney disease Musculoskeletal: reports: denies history Neurological: reports: CVA, dementia Psychiatric: reports: anxiety Endocrine/Immune: reports: Diabetes, thyroid disorder Other Conditions: reports: other - PRIOR SURGERIES/PROCEDURES Surgical/Procedure History: reports: recent surgery, cholecystectomy, hysterectomy, tonsillectomy, hernia repair, other (mastectomy ) - PRIOR HOSPITALIZATIONS Prior Hospitalizations: reports: for other non-related - IMMUNIZATION STATUS Childhood Immunizations: See Nurse Assessment Flu Vaccine: See Nurse Assessment - FAMILY HISTORY Family History: reviewed, not pertinent - SOCIAL HISTORY Smoking: denies Substance Use: denies Living Situation: care facility (assisted living) Physical Exam-General - PHYSICAL EXAM-ADULT Initial Vital Signs Reviewed: Yes - CONSTITUTIONAL General Appearance: alert, no apparent distress. negative: lethargic - HEAD, EARS, NOSE, MOUTH & THROAT HENMT: pharynx normal, other (dried blood to right nare). negative: angioedema - RESPIRATORY Respiratory: chest non-tender, lungs clear, normal breath sounds. negative: crackles, stridor - CARDIOVASCULAR Cardiovascular: regular rate, rhythm, no gallop, no murmur. negative: tachycardia - GASTROINTESTINAL (ABDOMEN) Abdominal Exam: normal bowel sounds, non tender, soft. negative: rigid - MUSCULOSKELETAL Extremity: non-tender, other (2 + pitting edema to bilateral lower extremities.) . negative: deformity - SKIN Integumentary: normal color, normal turgor, warm/dry. negative: diaphoresis, pallor - NEUROLOGIC Neurologic: grossly normal. negative: aphasia, facial droop - PSYCHIATRIC Psych/Mental Status: normal mood/affect, oriented x 3. negative: anxious Progress - PLAN OF CARE/RESULTS Progress/Plan/Lab Results: Vital Signs - 8 hr 07/25/19 14:01 Temperature 98.0 F Pulse Rate 57 L Respiratory Rate 16 Blood Pressure 177/86 O2 Sat by Pulse Oximetry 99 Laboratory Results - last 24 hr 07/25/19 14:01 POC Glucose 82 D Result Diagrams: 07/25/19 15:55 07/25/19 15:55 - EKG 1 Time of EKG reading by physician:: 15:02 EKG Read and Signed by:: Del Mina EKG Interpretation (*Must complete 3 of following elements*): Abnormal Rate: 58 Rhythm: sinus bradycardia [place]: normal [place] Interval: normal Comments: possible left atrial enlargement; septal infarct, age undetermined - XRAY 1 XRAY Study: Chest Impression: See EMR Report ( EXAM: CHEST-1 VIEW 07/25/2019 HISTORY: sob TECHNIQUE: AP portable upright at 1520 COMMENT: There is no evidence of acute cardiac or pulmonary disease. Compared to the previous study of 12/10/2017 the inspiration is less optimal but otherwise are has been no appreciable change. IMPRESSION: No acute disease. Electronically signed by Raphael Gutiérrez 07/25/2019 3:27 PM 07/25/19 1527 Interpreting Physician: Raphael Gutiérrez MD Dictated Date/Time: 07/25/19 1526 cc: Del Mina MD; None,PCP) Departure - Departure Date of Disposition Decision: 07/25/19 Time of Disposition Decision: 17:43 DIAGNOSIS: Hypertension, SOB (shortness of breath), CHF (congestive heart failure), Elevated troponin Disposition: ADMITTED INPATIENT 09 Certified Medical Emergency: Emergent Condition: Fair Referrals and Follow-Ups: None,PCP [Primary Care Provider] - - Critical Care Note This patient required my direct & personal management of CC.: No Attestation - Physician/ GONSALO Attestation Patient care was provided by Advanced Practice Provider:: No The physician spent face to face time with patient:: Yes Advanced Practice Provider documentation review:: Supervising physician onsite and consulted in the evaluation and care of this patient. The physician did have a face to face encounter with the patient. This chart was documented by the indicated scribe, (Sonia Vasquez Scribe) and accurately reflects the services I performed and decisions made by me, Del Mina MD, as attested by the provider's signature.
[2019-07-25] MEDS ORDERED: APRESOLINE IV PRN (17:57)
[2019-07-25] MEDS ORDERED: ZOFRAN IV PRN (17:58)
[2019-07-25] MEDS ORDERED: TYLENOL PO PRN (17:58)
[2019-07-25] MEDS ORDERED: HEPARIN SUBQ SCH (18:00)
[2019-07-25] MEDS ORDERED: COLACE PO PRN (18:44)
[2019-07-25 19:52] LABS: HEMATOCRIT 33.5 % (37.0-47.0); MCH 29.9 PG (27-31); MCHC 32.8 g/dL (33-37); RBC 3.68 XMIL (4.2-5.4); RDW 13.1 % (11.5-14.5); WBC 5.5 X1000 (4.8-10.8)
[2019-07-25 20:12] LABS: CALCIUM 8.7 mg/dL (8.8-10.2); POTASSIUM 5.3 mmol/L (3.5-5.1)
[2019-07-25 20:27] LABS: URINE SOURCE CLEAN CATCH
[2019-07-25 20:30] LABS: BILIRUBIN URINE NEGATIVE (NEGATIVE); BLOOD URINE TRACE (NEGATIVE); COLOR YELLOW; GLUCOSE URINE 70 mg/dL (NEGATIVE); KETONE URINE NEGATIVE (NEGATIVE); LEUKOCYTES URINE SMALL (NEGATIVE); NITRITE URINE NEGATIVE (NEGATIVE); PH URINE 6.5; PROTEIN URINE 300 mg/dL (NEGATIVE); SP GRAVITY URINE 1.016; TURBIDITY URINE HAZY (CLEAR); UROBILINOGEN URINE NORMAL (NORMAL)
[2019-07-25 20:31] LABS: UR EPITHELIAL CELLS <10 /HPF (<10); URINE BACTERIA 4+ /HPF; URINE RBC <10 /HPF (<10); URINE WBC TNTC /HPF (<10)
[2019-07-25] MEDS ORDERED: NORCO-5 PO SCH (21:00)
[2019-07-25] MEDS: CATAPRES PO SCH (21:39)
[2019-07-25] MEDS: SENOKOT PO SCH (21:40)
[2019-07-25] MEDS: COREG PO SCH (21:40)
[2019-07-25] MEDS: MELATONIN PO SCH (21:40)
[2019-07-25] MEDS: APRESOLINE PO SCH (21:40)
[2019-07-25] MEDS: LIPITOR PO SCH (21:40)
[2019-07-25] MEDS: HUMULIN R SUBQ SCH (21:41)
[2019-07-25] MEDS: NORCO-5 PO SCH (21:41)
--- NOTE | 2019-07-25 22:17 | HISTORY AND PHYSICAL ---
CHIEF COMPLAINT: High blood pressure, headache, lightheadedness, shortness of breath. HISTORY OF PRESENT ILLNESS: An 79-year-old female with multiple comorbidities including longstanding diabetes complicated with peripheral neuropathy, hypertension, hypothyroidism, chronic lower extremity edema, recurrent pancreatitis, history of breast cancer, CVA with mild right-sided weakness, dementia, gout, osteoarthritis, generalized weakness, recurrent UTI, hyperlipidemia presented to the emergency department with a chief complaint of shortness of breath that has been going on and been worsening for the past 2 weeks. As per the patient she was checked by her nurse practitioner who decided based on her symptoms to send this patient to the emergency department for evaluation. As per the patient she has been having constantly her blood pressure elevated even though she has been taking her medications, and now she is feeling lightheaded and short of breath. This patient is completely awake and oriented x3. Her lower extremities are not as swollen, only minimally and mostly on the right side, maybe 1+, but the left side looks fine. Vital signs showed an elevated blood pressure. It is documented 177/86, but upon my evaluation, the blood pressure was always in the more than 200s, and she feels short of breath even though her oxygen saturation is within normal limits. She denies nausea, vomiting, diarrhea, constipation at this moment. She has been having some dysuria though. She has some mild headache. Because of her symptoms, I will admit this patient to the PVC unit to check on her blood pressure and monitor this patient closely. REVIEW OF SYSTEMS: All the 14 points of review of systems were reviewed and all of them negative except as per HPI. As per the patient she has been always having dysuria and lower extremity edema except today that the lower extremities are better. PAST MEDICAL HISTORY: Like I mentioned before, longstanding diabetes with peripheral neuropathy, hypertension, uncontrolled hypertension, hypothyroidism, recurrent pancreatitis, history of breast cancer, CVA with minimal right-sided weakness, dementia, anemia, gout, osteoarthritis, weakness and recurrent UTI and hyperlipidemia. SOCIAL HISTORY: She is living in a retirement. She is a . No alcohol or drugs. FAMILY HISTORY: Coronary artery disease, hyperlipidemia, stroke and diabetes. PHYSICAL EXAMINATION: VITAL SIGNS: Documented at 2 p.m. Temperature 98 degrees, pulse 57, respiratory rate 16, blood pressure 100/77 but upon my examination was always higher than 200, oxygen saturation 99 on room air. HEENT: Head normocephalic, no trauma. PERRLA. NECK: Supple. No JVD. No masses. Central trachea. CHEST: Clear to auscultation. Some crepitus at the bases. ABDOMEN: Soft. Some tenderness to palpation at the level of the suprapubic area. EXTREMITIES: Right lower extremity edema, trace to 1+. No left lower extremity edema. NEUROLOGICAL EXAMINATION: This patient is awake, alert. She is oriented. She is following commands. LABORATORY DATA: WBC 5, hemoglobin 10.6, hematocrit 33.2, platelets 140,000. Sodium 140, potassium 4.7, chloride 105, bicarbonate 25, BUN 37, creatinine 1.8, glucose 135, calcium 9.1, high sensitive troponin 40, proBNP 1302, albumin 3.2. ASSESSMENT AND PLAN: 1. Hypertensive urgency. She is only having symptoms of lightheadedness and mostly with physical activity. She is feeling short of breath. She has a chronic kidney disease going on, so I am not quite sure if she has an end-organ damage, but the patient is having some symptoms, so I will put this patient back on her home medications. I will use as needed medications as well to see how she does. I will get a new echocardiogram, and I will monitor this patient closely to see how she does. 2. Shortness of breath. I am not quite sure why this patient is short of breath. It could be related to her high blood pressure, but she is not on home O2, and the x-ray looks stable. There is no evidence of acute cardiac or pulmonary disease. I will check an echocardiogram because the last one was done in 2016 I believe. 3. Type 2 diabetes, seems to be controlled. I will continue with her home medication and sliding scale insulin and pattern of blood sugar. 4. It looks like she had a history of hypothyroidism, but I do not see any thyroid medication listed. I will ask for a TSH. Her last discharge medications in 2017 did not show levothyroxine. 5. History of cerebrovascular accident, aware. 6. Dementia, aware. I will just continue with her home medications. 7. History of breast cancer, aware. 8. Anemia. We will monitor for now. 9. History of breast cancer, aware. Further recommendations pending hospital course. cc: Jett Gan MD
[2019-07-26] MEDS ORDERED: CYMBALTA PO SCH (09:00)
[2019-07-26] MEDS: COREG PO SCH ×2 (09:43→21:20)
[2019-07-26] MEDS: NORCO-5 PO SCH ×3 (09:44→21:18)
[2019-07-26] MEDS: CATAPRES PO SCH ×3 (09:44→21:18)
[2019-07-26] MEDS: PLAVIX PO SCH (09:44)
[2019-07-26] MEDS: LEVEMIR SUBQ SCH (09:45)
[2019-07-26 10:16] LABS: BASO# 0.01 X1000 (0.0-0.2); BASO% 0.1 % (0.0-0.8); EOS# 0.24 X1000 (0.0-0.7); EOS% 3.2 % (0.0-10.0); HEMATOCRIT 35.3 % (37.0-47.0); HEMOGLOBIN 11.2 g/dL (12.0-16.0); LYMPH# 2.32 X1000 (1.2-3.4); LYMPH% 31.1 % (20.5-51.1); MCH 28.6 PG (27-31); MCHC 31.7 g/dL (33-37); MCV 90.1 FL (81-99); MONO# 0.49 X1000 (0.11-0.59); MONO% 6.6 % (1.7-9.3); MPV 11.1 FL (7.4-10.4); PLT 132 X1000 (130-400); RBC 3.92 XMIL (4.2-5.4); RDW 12.9 % (11.5-14.5); WBC 7.46 X1000 (4.8-10.8)
[2019-07-26 11:20] LABS: CALCIUM 9.2 mg/dL (8.8-10.2); CREATININE 1.8 mg/dL (0.5-0.9); POTASSIUM 4.9 mmol/L (3.5-5.1)
[2019-07-26] MEDS: APRESOLINE PO SCH ×4 (12:04→21:19)
[2019-07-26] MEDS: HUMULIN R SUBQ SCH ×4 (14:51→21:09)
--- NOTE | 2019-07-26 14:58 | PROVIDER PROGRESS NOTE ---
Progress Note Chief complaint: I was having high blood pressure and it mckinnon when I pee. HPI: Ms. Roth is an 79-year-old white female with a past medical history most notable of chronic kidney disease of unknown stage, multiple CVAs with right sided weakness, recurrent UTIs, pancreatitis, hypertension, and diabetes Mellitus type 2. She has a 3 day history of recorded hypertensive episodes per the nurse practitioner at her assisted living associated with epistaxis and headaches who felt it best she be evaluated in the emergency department. Ms. Roth voices dizziness and shortness of breath on exertion since the headaches began. She also admits to a one week history of painful urination with hesitancy and odor. She denies chest pain, n/v, change in appetite, change in mentation, blood in her urine or bowel, constipation, diarrhea or foamy urine. Her admitting Creatinine was 2.0 with a BUN of 39. Her most recent blood pressure is 209/109. In our records she was a hospital follow up in June 2018 that we documented as a no-show. Past medical history: chronic kidney disease of unknown stage, hypertension, type two diabetes mellitus, coronary artery disease, myocardial infarction in 2012, orthostatic hypotension, hyperlipidemia, osteoarthritis, anemia, gout, breast cancer, and pancreatitis. Past surgical history: mastectomy on the left, stent placement in 2012, cholecystectomy, appendectomy. Social history: she is . She lives at the [facility] which is an assisted living facility. She denies alcohol, tobacco, and illicit drugs. Family history: her mother had kidney disease, her father and brother both from a CVA. Allergies: no known Home medications: Lipitor, carvedilol, clonidine, Plavix, diltiazem, docusate sodium, Cymbalta, [place] 5, novolog, Levemir, melatonin, multivitamin, Procardia XL, sennoside, Spironolactone, Nasacort. Review of systems: 14 point review system complete. All positives mentioned in the above HPI. Physical exam: Temperature 97.9, pulse 63, respirations 12, blood pressure 209/109, O2 sat 98% on room air. General: elderly white female lying in bed in no acute distress HEENT: normocephalic, atraumatic, pupils equal and reactive. Mucous membranes dry. Slight mouth drop to the right. Trachea midline. Skin: scattered bruising to the upper and lower Neck: supple, 6cm JVD with hepatojugular reflux Cardiovascular: s1s2s4. Regular rate and rhythm. Respiratory: clear with equal air entry anteriorly Abdomen: soft, Nontender, nondistended. No organomegaly. That sounds active. : not inspected Extremities: right sided weakness. no clubbing, edema, or cyanosis noted. Neurological: alert and oriented to person, place, and time. Labs: WBC 7.46, hemoglobin 11.2, hematocrit 35.3, platelet count 132, sodium 143, potassium 4.9, chloride 108, carbon dioxide 28, BUN 38, creatinine 1.8, TSH 2.24. urinalysis: turbidity hazy, protein 300, glucose 70, trace blood, small leukocyt es, WBC TNTC, 4+ bacteria. Imaging: chest x-ray normal. Assessment and Plan: Hypertensive urgency. She received catapres and hydralazine upon arrival and is now in her regular home meds plus scheduled clonidine, cardizem, and hydralazine. Her blood pressure remains elevated. See orders. rg Electrolytes and acid base balance. Stable. Anemia. Low, but does not meet transfusion criteria. Nutrition. Add renal diet Medication review. Clonidine.
--- NOTE | 2019-07-26 15:42 | PROGRESS NOTE ---
DATE: 07/26/2019 SUBJECTIVE: This patient is feeling a little bit better even though her blood pressure is still significantly elevated in the 200s, and 210s. She is eating and she is completely awake and oriented. She has been transferred to the PVC unit. Nephrology Department has been consulted. I will wait for more recommendations. In the meantime, I have started this patient on hydralazine and isosorbide mononitrate to see how she does. OBJECTIVE: Vital Signs: Temperature 97.9 degrees, pulse 63, respiratory rate 12, blood pressure 209/109, oxygen saturation 98 on room air. HEENT: Head normocephalic, no trauma. PERRLA. Neck: Supple. No JVD. No masses. Central trachea. Chest: Clear to auscultation. Some crepitus at the bases. Abdomen: Soft, nontender, nondistended. No hepatosplenomegaly. Maybe a little bit of tenderness at the level of the suprapubic area. Extremities: The right lower extremity has trace edema. No clubbing. No cyanosis. Neurological: The patient is awake, alert, and oriented x3. She is following commands. LABORATORY DATA: WBC 7.6, hemoglobin 11.2, hematocrit 35.3, platelets 132,000. Sodium 143, potassium 4.9, chloride 108, bicarbonate 28, BUN 38, creatinine 1.8, glucose 144, calcium 9.2. ASSESSMENT AND PLAN: 1. Hypertensive urgency. This patient's lightheadedness and headache are getting a little bit better even though the blood pressure is still elevated. I have requested an evaluation by Nephrology Department. I will wait for recommendations. I requested already an echocardiogram pending results. 2. Shortness of breath, resolved. 3. Type 2 diabetes, well controlled. 4. Possible history of hypothyroidism, but her thyroid level is 2.2, which is within normal limits without any kind of treatment, so I will monitor. 5. History of cerebrovascular accident, aware. 6. Dementia, aware. Continue home medication. 7. History of breast cancer. 8. Anemia. Will monitor. 9. Urinary tract infection. This patient has been having dysuria. I put this patient on ceftriaxone. As per the patient, she has been chronically having a urinary tract infection. We will monitor. cc: Jett Gan MD
[2019-07-26] MEDS: ROCEPHIN 1 GM in NS 50 ML IV SCH (16:17)
[2019-07-26] MEDS: CARDIZEM CD PO SCH (16:41)
--- NOTE | 2019-07-26 18:44 | ECHO REPORT ---
ORDER DATE: 07/25/2019 INDICATION: An 79-year-old female with hypertension and diabetes. M-MODE MEASUREMENTS: Left ventricle end diastole: 3.7. Left ventricle end systole: 2.4. Posterior wall: 1.1. Interventricular septum: 1.2. Left atrium: 3.8. Aortic diameter: 3.2. SUMMARY OF 2-DIMENSIONAL IMAGIN. Left ventricular function is normal. Ejection fraction is 66%. The chamber is not dilated. There is borderline concentric LVH. 2. The aortic valve shows calcification of the cusps, especially the non- coronary one. There is no significant gradient across the aortic valve. There is no regurgitation. 3. The mitral annulus shows mild calcification. Color flow mapping of the mitral valve indicates a mild degree of regurgitation. 4. Pulse wave Doppler of mitral inflow shows reversal of the E/A ratio. The ratio is 0.5. 5. Tissue Doppler of septal and lateral mitral annulus averages 4 cm. There is impaired left ventricular relaxation. 6. The tricuspid valve shows a mild to moderate degree of regurgitation. Pulmonary pressure is estimated to be on the order of 39 mmHg. 7. The left atrium appears to be mildly enlarged. 8. There is no pericardial effusion, no mass, and no thrombus. 9. The right-sided chambers appear to be normal. Clinical correlation recommended. cc: MD Jett Sanchez MD MTDD
[2019-07-26] MEDS: MELATONIN PO SCH (21:19)
[2019-07-26] MEDS: SENOKOT PO SCH (21:19)
[2019-07-26] MEDS: LIPITOR PO SCH (21:20)
[2019-07-26] MEDS: ISMO PO SCH (21:25)
[2019-07-27] MEDS: HUMULIN R SUBQ SCH ×4 (06:28→22:13)
[2019-07-27 06:31] LABS: CALCIUM 8.9 mg/dL (8.8-10.2); POTASSIUM 5.1 mmol/L (3.5-5.1)
[2019-07-27] MEDS: PLAVIX PO SCH (08:04)
[2019-07-27] MEDS: COREG PO SCH ×2 (08:04→22:17)
[2019-07-27] MEDS: CYMBALTA PO SCH (08:04)
[2019-07-27] MEDS: NORCO-5 PO SCH ×3 (08:04→22:10)
[2019-07-27] MEDS: ISMO PO SCH ×2 (08:04→22:14)
[2019-07-27] MEDS: APRESOLINE PO SCH ×3 (08:04→22:10)
[2019-07-27] MEDS: CARDIZEM CD PO SCH (08:05)
[2019-07-27] MEDS: LEVEMIR SUBQ SCH (08:05)
[2019-07-27] MEDS: CATAPRES PO SCH ×3 (08:05→22:10)
[2019-07-27 08:08] LABS: URINE SOURCE CATH
[2019-07-27 08:18] LABS: BILIRUBIN URINE NEGATIVE (NEGATIVE); BLOOD URINE TRACE (NEGATIVE); COLOR YELLOW; GLUCOSE URINE NEGATIVE (NEGATIVE); KETONE URINE NEGATIVE (NEGATIVE); LEUKOCYTES URINE LARGE (NEGATIVE); NITRITE URINE NEGATIVE (NEGATIVE); PH URINE 6.5; PROTEIN URINE 300 mg/dL (NEGATIVE); SP GRAVITY URINE 1.015; TURBIDITY URINE HAZY (CLEAR); UROBILINOGEN URINE NORMAL (NORMAL)
[2019-07-27 08:19] LABS: UR EPITHELIAL CELLS <10 /HPF (<10); URINE BACTERIA NEGATIVE /HPF; URINE RBC <10 /HPF (<10); URINE WBC TNTC /HPF (<10)
[2019-07-27 08:41] LABS: UR CREAT RANDOM 71.8 mg/dL (11-20); UR PROT RANDOM 458.2 mg/dL
--- NOTE | 2019-07-27 09:51 | PROGRESS NOTE ---
DATE: 07/27/2019 SUBJECTIVE: No changes compared with yesterday. Her blood pressure is still elevated. She is awake. She is following commands. She has requested to use LISS hoses. Hydralazine has been increased by Nephrology Department. OBJECTIVE: Vital Signs: Temperature 98 degrees, pulse 62, respiratory rate 16, blood pressure 208/64, oxygen saturation 98 on room air. HEENT: Head normocephalic. No trauma. PERRLA. Neck: Supple. No JVD. No masses. Central trachea. Chest: Clear to auscultation. Some crepitus at the bases. Abdomen: Soft. Extremities: No edema, no clubbing, no cyanosis. Neurological: The patient is awake and alert. She is oriented. She is following commands. LABORATORY DATA: Sodium 136, potassium 5.1, chloride 103, bicarbonate 23, BUN 39, creatinine 2, glucose 196, calcium 8.9. ASSESSMENT AND PLAN: 1. Hypertensive urgency. The patient seems to be feeling better even though her blood pressure is still elevated. We have been readjusting her medications. We will continue to monitor, pending ultrasound of the kidneys. 2. Shortness of breath, resolved. 3. Type 2 diabetes, stable. We will continue with the same management. 4. Possible history of hypothyroidism. Her thyroid level is 2.2, which is within normal limits without any kind of treatment, so we will monitor for now. 5. History of cerebrovascular accident, aware. 6. Dementia, aware. Continue home medications. 7. History of breast cancer, aware. 8. Anemia. Will monitor. 9. Urinary tract infection. As per the patient, this is a chronic issue. She has been placed on antibiotics. A urine culture showed gram-negative rods. cc: Jett Gan MD
[2019-07-27] MEDS: HEPARIN SUBQ SCH ×2 (09:53→22:13)
--- NOTE | 2019-07-27 12:45 | Diag Imaging Result Doc PS360 ---
EXAM: US RENAL 2 (RETROPER) COMPLETE 07/27/2019 HISTORY: decreased renal function TECHNIQUE: Renal ultrasound COMMENT: There is no evidence of hydronephrosis or mass. The urinary bladder is unremarkable. The right kidney is 9.4 x 4.8 x 4 cm the left is 10 x 4.3 x 4 cm. Jets are demonstrated in the bladder bilaterally. IMPRESSION: No evidence of obstructive uropathy. Electronically signed by Raphael Gutiérrez 07/27/2019 12:43 PM
[2019-07-27] MEDS: ROCEPHIN 1 GM in NS 50 ML IV SCH (13:05)
--- NOTE | 2019-07-27 16:46 | NEPHROLOGY PROGRESS NOTE ---
DATE: 07/27/2019 SUBJECTIVE: She is awake, alert. Complains of leg pain and asking for more pain medication. OBJECTIVE: Vital Signs: Blood pressure 208/64, heart rate 62, respirations 16, afebrile. General: Elderly frail woman lying in bed. No distress. Skin is warm and dry. Conjunctivae are pink. Oropharynx is not examined. Neck: Supple. Neck veins are not distended. Heart: Regular with a gallop. Lungs: Equal. No crackles. Abdomen: Soft, nontender. Bowel sounds present. Extremities: With trace edema. No clubbing or cyanosis. IMPRESSION: Chronic kidney disease. She is likely at her historical baseline. We will check urine electrolytes, urine protein and renal ultrasound. All these are pending. 1. Hypertension. Remains poorly controlled. I increased her hydralazine to 50 mg t.i.d. She is on 3 medications that may result in bradycardia and may potentiate one another. Her heart rate is currently 62 so I will continue the currently prescribed medications until her blood pressure is better control and then work to modify her regimen. She was on all these medicines at home. cc: Ronnie Munroe MD
[2019-07-27] MEDS: MELATONIN PO SCH (22:10)
[2019-07-27] MEDS: LIPITOR PO SCH (22:11)
[2019-07-27] MEDS: SENOKOT PO SCH (22:11)
[2019-07-28] MEDS: HUMULIN R SUBQ SCH ×4 (06:23→20:11)
[2019-07-28 06:54] LABS: CALCIUM 8.8 mg/dL (8.8-10.2); CREATININE 2.4 mg/dL (0.5-0.9); POTASSIUM 4.9 mmol/L (3.5-5.1)
[2019-07-28] MEDS: CARDIZEM CD PO SCH (08:02)
[2019-07-28] MEDS: COREG PO SCH ×2 (08:02→20:08)
[2019-07-28] MEDS: APRESOLINE PO SCH ×3 (08:02→20:09)
[2019-07-28] MEDS: HEPARIN SUBQ SCH ×2 (08:02→20:09)
[2019-07-28] MEDS: CYMBALTA PO SCH (08:02)
[2019-07-28] MEDS: NORCO-5 PO SCH ×3 (08:03→20:09)
[2019-07-28] MEDS: ISMO PO SCH ×2 (08:04→20:08)
[2019-07-28] MEDS: PLAVIX PO SCH (08:04)
[2019-07-28] MEDS: CATAPRES PO SCH ×3 (08:04→20:08)
[2019-07-28] MEDS: LEVEMIR SUBQ SCH (08:11)
--- NOTE | 2019-07-28 12:41 | PROGRESS NOTE ---
DATE: 07/28/2019 SUBJECTIVE: No changes compared with yesterday. This patient has been having ups and downs with her blood pressure, the lowest was 121/40 and the highest yesterday was 208. Today I have 2 readings and he it has been between 140, 177 systolic with diastolic in the 50s. The creatinine increased a little bit compared with yesterday from 2 to 2.4 and the BUN is 50. Renal ultrasound did not show any evidence of obstructive uropathy. OBJECTIVE: Vital signs: Temperature 98.6 degrees, pulse 63, respiratory rate 18, blood pressure 177/57, oxygen saturation 100% on room air. HEENT: Head normocephalic, no trauma. PERRLA. Neck: Supple. No JVD. No masses. Central trachea. Chest: Clear to auscultation. Some crepitus at the bases. Abdomen: Soft, nontender, nondistended. No hepatosplenomegaly. Neurological: The patient is awake, alert. She is oriented x3. No focal deficits. Extremities: No edema, no clubbing, no cyanosis. She has as peripheral neuropathy and is sensitive at the level of the lower extremities. LABORATORY DATA: Sodium 137, potassium 4.9, chloride 105, bicarbonate 21, BUN 50, creatinine 2.4, glucose 118, calcium 8.8. ASSESSMENT AND PLAN: 1. Hypertensive urgency. This patient seems to be feeling better even though the blood pressure has been up and down, yesterday it was between 120s and 208 systolic. Nephrology department on board. Ultrasound of the kidneys without any kind of obstructive uropathy. 2. Shortness of breath, resolved. 3. Type 2 diabetes, stable. 4. Possible history of hypothyroidism, her thyroid level is 2.2, which is within normal limits without any kind of treatment so we will monitor for now. 5. History of cerebrovascular accident. Aware. 6. Dementia. Aware. Continue home medications. 7. History of breast cancer. Aware. 8. Anemia. We will monitor. 9. Urinary tract infection. As per the patient, this is chronic. She has been placed on antibiotics. Culture showed Escherichia coli that is pansensitive. 10. Peripheral neuropathy, severe. As per the patient, she goes to a pain clinic to get her [place], I put her back on her [place] a couple days ago. cc: Jett Gan MD
[2019-07-28] MEDS: ROCEPHIN 1 GM in NS 50 ML IV SCH (13:13)
[2019-07-28] MEDS: NS 1,000 ML IV SCH (13:13)
[2019-07-28] MEDS: MELATONIN PO SCH (20:08)
[2019-07-28] MEDS: SENOKOT PO SCH (20:08)
[2019-07-28] MEDS: LIPITOR PO SCH (20:08)
--- NOTE | 2019-07-28 21:40 | NEPHROLOGY PROGRESS NOTE ---
DATE: 07/28/2019 SUBJECTIVE: She is sitting up eating her breakfast. No new complaints. OBJECTIVE: Vital Signs: Blood pressure 177/57, heart rate 63, respiration 18, afebrile. Intake 1.3 L. Output 1 L. General: No acute distress. Skin: Warm and dry. Neck: Neck veins are not distended. Heart: Regular. Lungs: Equal. No crackles. Abdomen: Benign. Extremities: No edema, clubbing or cyanosis. IMPRESSION: Acute kidney injury. Overlying chronic kidney disease. Her creatinine has risen modestly. I am concerned that she is somewhat volume contracted so I will give gentle IV fluids through the day today. Regarding her blood pressure, it has improved significantly and in fact has been on the low side through the afternoon yesterday. Continue current care. you end dictation. Still arms [id number]. cc: Ronnie Munroe MD
[2019-07-29] MEDS: NS 1,000 ML IV SCH ×2 (01:06→15:21)
[2019-07-29] MEDS ORDERED: NORCO-5 PO PRN (05:20)
[2019-07-29] MEDS: HUMULIN R SUBQ SCH ×5 (06:18→21:26)
[2019-07-29] MEDS ORDERED: INSULIN PEN NEEDLES ONE (06:23)
[2019-07-29 08:10] LABS: CALCIUM 8.4 mg/dL (8.8-10.2); CREATININE 2.2 mg/dL (0.5-0.9); POTASSIUM 5.6 mmol/L (3.5-5.1)
[2019-07-29] MEDS: LEVEMIR SUBQ SCH (08:22)
[2019-07-29] MEDS: CARDIZEM CD PO SCH (08:22)
[2019-07-29] MEDS: CYMBALTA PO SCH (08:22)
[2019-07-29] MEDS: HEPARIN SUBQ SCH ×2 (08:22→21:28)
[2019-07-29] MEDS: APRESOLINE PO SCH ×3 (08:22→21:24)
[2019-07-29] MEDS: ISMO PO SCH ×2 (08:22→21:24)
[2019-07-29] MEDS: COREG PO SCH ×2 (08:22→21:28)
[2019-07-29] MEDS: PLAVIX PO SCH (08:22)
[2019-07-29] MEDS: CATAPRES PO SCH ×3 (08:22→21:25)
--- NOTE | 2019-07-29 11:34 | PROGRESS NOTE ---
DATE: 07/29/2019 SUBJECTIVE: She is still complaining of some lower extremity pain, which is chronic. She has requested to take her [place] at 8 a.m., 2 p.m., and 11 p.m., so I did the changes already on her medications. Kidney function seems to be better compared with yesterday, and potassium is slightly elevated. Blood sugar is stable, and the blood pressure seems to be stable for the past couple days. I believe this patient tomorrow can be discharged if Nephrology Department is okay with that. OBJECTIVE: Vital Signs: Temperature 98.2 degrees, pulse 66, respiratory rate 16, blood pressure 167/50, oxygen saturation 98 on room air. HEENT: Head normocephalic. No trauma. PERRLA. Neck: Supple. No JVD. No masses. Central trachea. Chest: Clear to auscultation. Some crepitus at the bases. Abdomen: Soft, nontender, nondistended. No hepatosplenomegaly. Extremities: She has peripheral neuropathy, and is really sensitive to touch at the level of the lower extremities. I do not see any edema. Neurological: The patient is awake and alert. She is oriented. She is following commands. She has dementia. LABORATORY DATA: Sodium 135, potassium 5.6, chloride 105, bicarbonate 20, BUN 48, creatinine 2.2, glucose 153, calcium 8.4. ASSESSMENT AND PLAN: 1. Hypertensive urgency. This is better. Will continue with the same management. Nephrology Department on board. 2. Shortness of breath, resolved. 3. Type 2 diabetes, stable. 4. Possible history of hypothyroidism, but her thyroid level is 2.2, which is within normal limits without any kind of treatment, so will monitor. 5. History of cerebrovascular accident. Aware. 6. Dementia. Aware. 7. History of breast cancer. Aware. 8. Anemia. Will monitor. 9. Urinary tract infection. As per the patient, this is chronic. She has been placed on antibiotics. She has extended spectrum beta-lactamase, which is pansensitive. 10. Peripheral neuropathy. This is quite severe. She has been placed on [place], and she is following a pain doctor as an outpatient. I will continue with the same management. I modified the hours of the treatment. cc: Jett Gan MD
[2019-07-29] MEDS: NORCO-5 PO SCH ×2 (15:14→22:53)
[2019-07-29] MEDS: ROCEPHIN 1 GM in NS 50 ML IV SCH (15:15)
[2019-07-29] MEDS: SENOKOT PO SCH (21:25)
[2019-07-29] MEDS: MELATONIN PO SCH (21:25)
[2019-07-29] MEDS: LIPITOR PO SCH (21:26)
[2019-07-30] MEDS: NS 1,000 ML IV SCH ×2 (03:06→19:01)
[2019-07-30] MEDS: HUMULIN R SUBQ SCH ×4 (06:11→21:54)
[2019-07-30 07:35] LABS: BASO# 0.01 X1000 (0.0-0.2); BASO% 0.2 % (0.0-0.8); EOS# 0.15 X1000 (0.0-0.7); EOS% 2.3 % (0.0-10.0); HEMATOCRIT 30.7 % (37.0-47.0); HEMOGLOBIN 9.5 g/dL (12.0-16.0); IMM GRAN# 0.02 X1000 (0.0-0.04); IMM GRAN% 0.3 % (0.0-0.5); LYMPH# 1.49 X1000 (1.2-3.4); LYMPH% 23.3 % (20.5-51.1); MCH 28.5 PG (27-31); MCHC 30.9 g/dL (33-37); MCV 92.2 FL (81-99); MONO# 0.42 X1000 (0.11-0.59); MONO% 6.6 % (1.7-9.3); NEUT% 67.3 % (42.2-75.2); PLT 137 X1000 (130-400); RBC 3.33 XMIL (4.2-5.4); RDW 13.3 % (11.5-14.5); WBC 6.39 X1000 (4.8-10.8)
[2019-07-30 08:02] LABS: CALCIUM 8.5 mg/dL (8.8-10.2); CREATININE 2.3 mg/dL (0.5-0.9); PHOSPHORUS 4.1 mg/dL (2.7-4.5); POTASSIUM 5.4 mmol/L (3.5-5.1)
[2019-07-30] MEDS: CATAPRES PO SCH ×3 (08:37→21:54)
[2019-07-30] MEDS: PLAVIX PO SCH (08:37)
[2019-07-30] MEDS: CYMBALTA PO SCH (08:37)
[2019-07-30] MEDS: CARDIZEM CD PO SCH (08:37)
[2019-07-30] MEDS: APRESOLINE PO SCH ×3 (08:37→21:54)
[2019-07-30] MEDS: ISMO PO SCH ×2 (08:37→21:54)
[2019-07-30] MEDS: NORCO-5 PO SCH ×2 (08:37→15:44)
[2019-07-30] MEDS: COREG PO SCH ×2 (08:37→21:54)
[2019-07-30] MEDS: HEPARIN SUBQ SCH ×2 (08:38→21:54)
[2019-07-30] MEDS: LEVEMIR SUBQ SCH (08:38)
--- NOTE | 2019-07-30 09:12 | NEPHROLOGY PROGRESS NOTE ---
DATE: 07/30/2019 SUBJECTIVE: The patient is resting in bed. She has complaints of burning on urination. OBJECTIVE: Vital Signs: Temperature 98.1 degrees, pulse 60, respiratory rate 21, blood pressure 174/65. Intake 1.7 L, output 1.3 L. General: Chronically ill-appearing, elderly female, resting in bed. She does not appear in acute distress. HEENT: Normocephalic, atraumatic. LAINEY. Neck: Supple without JVD. Cardiovascular: Regular rate and rhythm. No murmur. Pulmonary: She is clear bilaterally. Equal excursion. Abdomen: Soft, positive bowel sounds. Genitourinary: She is voiding. Extremities: No clubbing, cyanosis. Integumentary: Skin is warm and dry. LAB DATA: Pending. ASSESSMENT AND PLAN: 1. Acute overlying chronic kidney disease. She did receive some intravenous fluids. Over the last 24 hours, her urine output has been excellent, greater than 1 liter, and again, we are awaiting her labs this morning. It looks like she has a baseline creatinine of around 1.8. 2. Dysuria. We will go ahead and check a urinalysis. Dictated by JEOVANY Erazo for Ronnie Munroe MD Face to face encounter, data reviewed, discussed with Yony Walker on 07/30/18. I agree with the above assessment and plan of care. cc: Ronnie Munroe MD [facility]
[2019-07-30 09:38] LABS: URINE SOURCE VOIDED
[2019-07-30 09:45] LABS: BILIRUBIN URINE NEGATIVE (NEGATIVE); BLOOD URINE NEGATIVE (NEGATIVE); COLOR YELLOW; GLUCOSE URINE TRACE mg/dL (NEGATIVE); KETONE URINE NEGATIVE (NEGATIVE); LEUKOCYTES URINE NEGATIVE (NEGATIVE); NITRITE URINE NEGATIVE (NEGATIVE); PROTEIN URINE 200 mg/dL (NEGATIVE); SP GRAVITY URINE 1.015; TURBIDITY URINE CLEAR (CLEAR); UROBILINOGEN URINE NORMAL (NORMAL)
[2019-07-30 09:48] LABS: UR EPITHELIAL CELLS <10 /HPF (<10); URINE BACTERIA NEGATIVE /HPF; URINE RBC <10 /HPF (<10); URINE WBC <10 /HPF (<10)
--- NOTE | 2019-07-30 11:45 | PROGRESS NOTE ---
DATE: 07/30/2019 SUBJECTIVE: This patient seems to be feeling better today. Her BUN is about the same. Creatinine increased a little bit from 2.2 to 2.3, but the urine output seems to be better. I will wait for the final recommendations of Nephrology Department to see if we can discharge this patient soon. Potassium level is still slightly elevated at 5.4. Blood pressure seems to be better controlled. Will continue with the same management for now. OBJECTIVE: Vital Signs: Temperature 98.4 degrees, pulse 69, respiratory rate 20, blood pressure 186/67, oxygen saturation 97% on room air. HEENT: Head normocephalic. No trauma. PERRLA. Neck: Supple. No JVD. No masses. Central trachea. Chest: Clear to auscultation. Some crepitus at the bases. Abdomen: Soft, nontender, nondistended. No hepatosplenomegaly. Extremities: No clubbing, no cyanosis. She does have peripheral neuropathy with some pain to palpation. Neurological: The patient is awake and alert. She is oriented. She is following commands. She has dementia. LABORATORY DATA: WBC 6.3, hemoglobin 9.5, hematocrit 30.7, platelets 137,000. Sodium 140, potassium 5.4, chloride 112, bicarbonate 19, BUN 47, creatinine 2.3, glucose 148, calcium 8.5. ASSESSMENT AND PLAN: 1. Hypertensive urgency. Blood pressure is better controlled. Continue with the same management. 2. Shortness of breath, resolved. 3. Type 2 diabetes, stable. 4. History of hypothyroidism. She is not on treatment. TSH is normal. 5. History of cerebrovascular accident. Aware. 6. Dementia. Aware. 7. Acute on chronic kidney disease. Nephrology Department is following this patient closely. 8. Anemia. Will monitor. 9. Urinary tract infection. As per the patient, this is chronic. She has been placed on antibiotics. She has Escherichia coli, which is pansensitive. 10. Peripheral neuropathy. Aware. Continue with her [place] as scheduled. 11. Anemia. Will monitor. 12. Disposition. Her BUN and creatinine are about the same compared with yesterday. Her urine output improved. I will wait for the final recommendations of Nephrology Department to see if this patient can be discharged soon, I believe in the next 24 to 48 hours. cc: Jett Gan MD
[2019-07-30] MEDS ORDERED: ANUSOL-HC SUPP PR SCH (13:00)
[2019-07-30] MEDS: ROCEPHIN 1 GM in NS 50 ML IV SCH (15:46)
[2019-07-30] MEDS: LIPITOR PO SCH (21:54)
[2019-07-30] MEDS: SENOKOT PO SCH (21:54)
[2019-07-30] MEDS: MELATONIN PO SCH (21:54)
[2019-07-30] MEDS: ANUSOL-HC SUPP PR SCH (21:54)
[2019-07-31] MEDS: NORCO-5 PO SCH ×3 (00:29→13:30)
[2019-07-31] MEDS: NS 1,000 ML IV SCH (06:21)
[2019-07-31 07:37] LABS: CALCIUM 8.7 mg/dL (8.8-10.2); CREATININE 1.8 mg/dL (0.5-0.9); POTASSIUM 5.2 mmol/L (3.5-5.1)
[2019-07-31] MEDS: APRESOLINE PO SCH ×3 (08:47→21:20)
[2019-07-31] MEDS: CATAPRES PO SCH ×3 (08:48→21:20)
[2019-07-31] MEDS: CARDIZEM CD PO SCH (08:48)
[2019-07-31] MEDS: ISMO PO SCH ×2 (08:48→21:19)
[2019-07-31] MEDS: PLAVIX PO SCH (08:48)
[2019-07-31] MEDS: CYMBALTA PO SCH (08:48)
[2019-07-31] MEDS: HEPARIN SUBQ SCH ×2 (08:49→21:20)
[2019-07-31] MEDS: ANUSOL-HC SUPP PR SCH ×3 (08:49→21:21)
[2019-07-31] MEDS: LEVEMIR SUBQ SCH (08:49)
[2019-07-31] MEDS: COREG PO SCH ×2 (08:49→21:19)
[2019-07-31] MEDS: HUMULIN R SUBQ SCH ×3 (11:00→21:21)
--- NOTE | 2019-07-31 12:02 | NEPHROLOGY PROGRESS NOTE ---
DATE: 07/31/2019 SUBJECTIVE: Patient resting in bed. No complaints aside from continued urinary burning. OBJECTIVE: Temperature 98.1 degrees, pulse 63, respiratory rate 18, and blood pressure 145/51. Intake not measured. Output 1.6 L.General: Chronically ill-appearing female resting in bed. She is awake and alert. She is in no acute distress. HEENT: Normocephalic, atraumatic. LAINEY. Neck: Supple without JVD. Cardiovascular: Regular rate and rhythm without murmur. Pulmonary: She is clear bilaterally on equal excursion on 2 L nasal cannula. Abdomen: Soft. Positive bowel sounds. : She has an external urinary collection device noninvasive with clear yellow urine noted in the suction canister. Extremities: No clubbing, cyanosis, or edema. Integumentary: Skin is warm and dry. LABORATORY DATA: Her labs today are pending. Yesterday's potassium was 5.4, CO2 19, and creatinine 2.3. Her creatinine has ranged from 2 to 2.4 over the last 4 days. ASSESSMENT AND PLAN: 1. Acute overlying chronic kidney disease. Urine output remains excellent. Her creatinine although slightly above her baseline has been stable, and from a renal perspective patient can be discharged at the discretion of the primary. She can see us in our office in about 2 weeks with some labs in the interim. 2. Dysuria. Urinalysis was negative. The patient does not have a [place] catheter. She has an external urine collection device. 3. Hypertension, controlled. Dictated by JEOVANY Erazo for Ronnie Munroe MD Face to face encounter, data reviewed, discussed with Yony Walker on 07/31/18. I agree with the above assessment and plan of care. cc: Ronnie Munroe MD [facility]
[2019-07-31] MEDS: ROCEPHIN 1 GM in NS 50 ML IV SCH (13:29)
--- NOTE | 2019-07-31 13:51 | PROGRESS NOTE ---
DATE: 07/31/2019 SUBJECTIVE: The patient seems to be stable, her BUN and creatinine stabilized as well. I would like to discharge this patient today, but she is living in an assisted living, and she is not walking too much and she seems to be more weak. So, before going to assisted, we will go ahead and try to send this patient to a rehab center. OBJECTIVE: Vital Signs: Temperature 97.7 degrees, pulse 66, respiratory rate 18, blood pressure 149/50, oxygen saturation 96 on room air. HEENT: Head normocephalic. No trauma. PERRLA. Neck: Supple. No JVD. No masses. Central trachea. Chest: Clear to auscultation. Some crepitus at the bases. Abdomen: Soft, nontender, nondistended. No hepatosplenomegaly. Extremities: No clubbing, no cyanosis. She does have peripheral neuropathy with some pain to palpation. Neurological: The patient is awake, alert. She is oriented. She is following commands. She has dementia. LABORATORY: Sodium 136, potassium 5.2, chloride 110, bicarbonate 18, BUN 42, creatinine 1.8, glucose 153. Hematocrit calcium 8.7. ASSESSMENT AND PLAN: 1. Hypertensive urgency, resolved, better controlled. 2. Shortness of breath, resolved. 3. Type 2 diabetes, stable. 4. History of cerebrovascular accident. Aware. 5. Dementia. Aware. 6. Acute on chronic kidney disease, probably this patient is close to her baseline. 7. Anemia. Will monitor. 8. Urinary tract infection. Continue with the same management, Escherichia coli is pansensitive. 9. Peripheral neuropathy, continue with [place] as scheduled. 10. Anemia. Will monitor. 11. Disposition. This patient seems to be doing much better. She lives in assisted living, and she is weak, so probably she cannot go back to that place. I discussed the case with the dialysis social worker and we are going to try to send her to a rehab center so she can go back to her facility. cc: Jett Gan MD
[2019-07-31] MEDS: MELATONIN PO SCH (21:20)
[2019-07-31] MEDS: LIPITOR PO SCH (21:20)
[2019-07-31] MEDS: SENOKOT PO SCH (21:20)
[2019-08-01] MEDS: NORCO-5 PO SCH ×4 (03:02→22:11)
[2019-08-01] MEDS: HUMULIN R SUBQ SCH ×5 (03:34→22:12)
[2019-08-01] MEDS: NS 1,000 ML IV SCH ×2 (03:35→11:05)
[2019-08-01] MEDS: CYMBALTA PO SCH (08:31)
[2019-08-01] MEDS: PLAVIX PO SCH (08:32)
[2019-08-01] MEDS: COREG PO SCH ×2 (08:32→22:11)
[2019-08-01] MEDS: HEPARIN SUBQ SCH ×2 (08:32→22:12)
[2019-08-01] MEDS: CATAPRES PO SCH ×3 (08:33→22:11)
[2019-08-01] MEDS: APRESOLINE PO SCH ×3 (08:33→22:11)
[2019-08-01] MEDS: ANUSOL-HC SUPP PR SCH ×4 (08:33→22:12)
[2019-08-01] MEDS: ISMO PO SCH ×2 (08:33→22:11)
[2019-08-01] MEDS: LEVEMIR SUBQ SCH (08:37)
[2019-08-01] MEDS: PROCARDIA ER PO SCH (08:37)
[2019-08-01 08:43] LABS: ALBUMIN 2.7 g/dL (3.5-5.0); CALCIUM 8.5 mg/dL (8.8-10.2); CREATININE 1.7 mg/dL (0.5-0.9); PHOSPHORUS 3.5 mg/dL (2.7-4.5); POTASSIUM 4.8 mmol/L (3.5-5.1)
[2019-08-01] MEDS: ROCEPHIN 1 GM in NS 50 ML IV SCH (14:20)
[2019-08-01 15:07] LABS: BILIRUBIN URINE NEGATIVE (NEGATIVE); BLOOD URINE NEGATIVE (NEGATIVE); COLOR YELLOW; GLUCOSE URINE 100 mg/dL (NEGATIVE); KETONE URINE NEGATIVE (NEGATIVE); LEUKOCYTES URINE NEGATIVE (NEGATIVE); NITRITE URINE NEGATIVE (NEGATIVE); PROTEIN URINE 300 mg/dL (NEGATIVE); SP GRAVITY URINE 1.016; TURBIDITY URINE CLEAR (CLEAR); URINE SOURCE CATH; UROBILINOGEN URINE NORMAL (NORMAL)
[2019-08-01 15:09] LABS: UR EPITHELIAL CELLS <10 /HPF (<10); URINE BACTERIA NEGATIVE /HPF; URINE RBC <10 /HPF (<10); URINE WBC <10 /HPF (<10)
--- NOTE | 2019-08-01 16:11 | PROVIDER PROGRESS NOTE ---
Progress Note Subjective: She voices she still has painful urination. Objective: Temperature 98.1, pulse 69, respirations 18, blood pressure 174/61, 02 sat 98% on room air. General: elderly white female lying in bed in no acute distress HEENT: normocephalic, atraumatic, pupils equal and reactive. Mucous membranes dry. Trachea midline. Skin: scattered bruising to the upper and lower extremities. Neck: supple, 6cm JVD. Cardiovascular: [id number]. Regular rate and rhythm. No murmur. Respiratory: clear with equal air entry anteriorly Abdomen: soft, Nontender, nondistended. No organomegaly. Bowel sounds active. : external catheter in place. Extremities: right sided weakness. no clubbing, edema, or cyanosis noted. Neurological: alert and oriented to person, place, and time. Labs: intake not charted, output 1600. Sodium 136, potassium 4.8, chloride 110, carbon dioxide 16, anion gap 10, BUN 41, creatinine 1.7. Impression: Acute on chronic kidney disease. BUN and Creatinine slowly improving. Adequate urine output. We will reculture her urine for continued complaints of pain. Her previous culture is susceptible to rocephin. Blood pressure. Discontinued cardizem. Added nifedipine 60mg qday Electrolytes and acid base balance. Stable. Anemia. Low, but does not meet transfusion criteria. Painful urine. Reculture. Covered with antibiotics. Nutrition. Medication review.
--- NOTE | 2019-08-01 17:12 | PROGRESS NOTE ---
DATE: 08/01/2019 SUBJECTIVE: This patient seems to be stable. BUN and creatinine has been stabilizing, we are going to be able to discharge this patient tomorrow to a rehab center. She is still complaining of lower extremity pain, but this is chronic, not worsening. OBJECTIVE: Vital Signs: Temperature 98 degrees, pulse 62, respiratory rate 20, blood pressure 146/48, oxygen saturation 99 on room air. HEENT: Head normocephalic. No trauma. PERRLA. Neck: Supple. No JVD. No masses. Central trachea. Chest: Clear to auscultation. Some crepitus at the bases. Abdomen: Soft, nontender, nondistended. No hepatosplenomegaly. Extremities: No clubbing, no cyanosis. She does have peripheral neuropathy with some pain to palpation. Neurological: The patient is awake. Alert. She is oriented. She follows commands. She has dementia. LABORATORY: Sodium 136, potassium 4.8, chloride 110, bicarbonate 16, BUN 41, creatinine is 1.7, glucose 181, calcium 8.5, albumin 2.7. ASSESSMENT AND PLAN: 1. Hypertensive urgency, resolved, better controlled today, nephrology department on board. 2. Shortness of breath, resolved. 3. Type 2 diabetes, stable. 4. History of cerebrovascular accident. Aware. 5. Dementia. Aware. 6. Acute on chronic kidney disease, back to her baseline. 7. Anemia will monitor. 8. Urinary tract infection. Continue with same management. Escherichia coli is pansensitive. 9. Peripheral neuropathy. Continue with [place] as scheduled. Apparently, she follows a pain clinic. 10. Anemia. Will monitor. 11. Disposition: The patient is doing much better. She lives in an assisted living but she is weak so she will need to go to a rehab center. We do have placement for this patient tomorrow. I have been notified by the social media marketer. After that treatment at the rehab facility, likely she can go back to the assisted living. cc: Jett Gan MD
[2019-08-01] MEDS: MELATONIN PO SCH (22:11)
[2019-08-01] MEDS: SENOKOT PO SCH (22:11)
[2019-08-01] MEDS: LIPITOR PO SCH (22:12)
[2019-08-02] MEDS: NS 1,000 ML IV SCH (04:02)
[2019-08-02 04:21] VITALS: BP 168/60
[2019-08-02] MEDS: HUMULIN R SUBQ SCH ×2 (06:24→11:35)
[2019-08-02] MEDS: ISMO PO SCH (08:36)
[2019-08-02] MEDS: ANUSOL-HC SUPP PR SCH ×2 (08:36→16:01)
[2019-08-02] MEDS: PROCARDIA ER PO SCH (08:36)
[2019-08-02] MEDS: CYMBALTA PO SCH (08:37)
[2019-08-02] MEDS: PLAVIX PO SCH (08:37)
[2019-08-02] MEDS: APRESOLINE PO SCH ×2 (08:37→15:02)
[2019-08-02] MEDS: COREG PO SCH (08:37)
[2019-08-02] MEDS: CATAPRES PO SCH ×2 (08:37→15:02)
[2019-08-02] MEDS: LEVEMIR SUBQ SCH (08:38)
[2019-08-02] MEDS: NORCO-5 PO SCH ×2 (08:38→13:43)
[2019-08-02] MEDS: HEPARIN SUBQ SCH (08:38)
[2019-08-02 08:51] LABS: BASO# 0.01 X1000 (0.0-0.2); BASO% 0.1 % (0.0-0.8); EOS# 0.15 X1000 (0.0-0.7); EOS% 2.2 % (0.0-10.0); HEMATOCRIT 31.8 % (37.0-47.0); HEMOGLOBIN 9.9 g/dL (12.0-16.0); IMM GRAN# 0.05 X1000 (0.0-0.04); IMM GRAN% 0.7 % (0.0-0.5); LYMPH# 2.19 X1000 (1.2-3.4); LYMPH% 31.8 % (20.5-51.1); MCH 28.4 PG (27-31); MCHC 31.1 g/dL (33-37); MCV 91.1 FL (81-99); MONO# 0.46 X1000 (0.11-0.59); MONO% 6.7 % (1.7-9.3); MPV 10.8 FL (7.4-10.4); NEUT# 4.02 X1000 (1.4-6.5); NEUT% 58.5 % (42.2-75.2); PLT 183 X1000 (130-400); RBC 3.49 XMIL (4.2-5.4); RDW 13.3 % (11.5-14.5); WBC 6.88 X1000 (4.8-10.8)
[2019-08-02 09:16] LABS: ALBUMIN 2.9 g/dL (3.5-5.0); CALCIUM 8.7 mg/dL (8.8-10.2); CREATININE 1.7 mg/dL (0.5-0.9); PHOSPHORUS 3.6 mg/dL (2.7-4.5)
--- NOTE | 2019-08-02 11:27 | DISCHARGE SUMMARY ---
ADMISSION DATE: 07/25/2019 DISCHARGE DATE: 08/02/2019 DISPOSITION: [facility]. FOLLOWUP: Dr. Munroe. CONSULTATIONS DURING THIS ADMISSION: Nephrology was consulted. Patient was seen by Dr. Munroe. INVASIVE PROCEDURES DONE DURING THIS ADMISSION: None. IMAGING STUDIES OF SIGNIFICANCE: 1. Chest x-ray showed no acute disease. 2. Echocardiogram showed an ejection fraction of 66% with borderline concentric left ventricular hypertrophy. Valves were unremarkable. 3. Renal ultrasound showed no evidence of obstructive uropathy. 4. EKG on admission was normal sinus rhythm. No ST-segment or T-wave abnormality. ADMISSION DIAGNOSES: 1. Hypertensive urgency. 2. Shortness of breath. 3. Type 2 diabetes mellitus. 4. History of cerebrovascular accident. 5. Dementia. DIAGNOSES AT THE TIME OF DISCHARGE: 1. Severe uncontrolled hypertension on admission (hypertensive urgency). 2. Shortness of breath on presentation secondary to pulmonary edema from diastolic heart failure. 3. History of multiple cerebrovascular accidents. No focal deficit. 4. 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 5. Escherichia coli urinary tract infection. 6. Peripheral neuropathy, presumably diabetic in etiology. 7. Diabetes mellitus type 2. 8. Anemia of chronic disease. 9. Acute on chronic versus progression of chronic kidney disease. 10. Non-gap metabolic acidosis, presumably from chronic kidney disease. DISCHARGE MEDICATIONS: 1. Coreg 25 mg b.i.d. 2. Levemir 46 units subcutaneous daily. 3. Melatonin 3 mg p.o. at bedtime. 5. Atorvastatin 80 mg p.o. at bedtime. 6. Colace. 7. Imdur 20 mg b.i.d. 8. Ty Ty. 9. Cephalexin 500 mg p.o. q.12. 10. Duloxetine 60 mg p.o. daily. 11. Hydralazine 50 mg 3 times per day. 12. Spironolactone with hydrochlorothiazide 1 tablet p.o. daily. PRESENTING COMPLAINT: Shortness of breath, headache, high blood pressure. HISTORY OF PRESENTING COMPLAINT: Ms. Roth is an 79-year-old, female with multiple comorbidities including diabetes, CVAs, lower extremity edema, hypertension, peripheral neuropathy. The patient is a resident of assisted living. We understand she was having issues with her blood pressure control. Her provider went to check on her. Blood pressures were in the 200s, so she was advised to come to the emergency room. Upon presenting to the emergency room, Ms. Roth was found to have initial blood pressure reading of 177/86. It went up to 244/92. She was admitted to the medical floor for further management. HOSPITAL COURSE: Ms. Roth was admitted to the medical floor under telemonitoring. She was started on different types mechanism-rosado of blood pressure medications and nephrology was consulted. Ms. Solitarios blood pressure continues to improve. This morning, it is 168/60. She remained asymptomatic. She was also found to have a creatinine of 1.8. It went up to 2.4 at some point but it is down to 1.7. I think this is probably her baseline. Since 2017, she has a baseline of about 1.2. Ms. Roht's other comorbidities were all addressed during the hospital course. She was evaluated on multiple occasions by physical therapy. Yesterday, she was able to do 290 feet with full weightbearing, minimum assist with verbal guidance. We deemed that Ms. Roth is now medically stable to be discharged to her rehab to continue with her physical strengthening. All the discharge instructions have been discussed with her and she voiced understanding. Of note, Ms. Roth was also found to have a urinary tract infection. She was initially started on IV ceftriaxone. This has been switched to p.o. Keflex for 5 more days of additional therapy. Ms. Roth is supposed to do a repeat BMP in about a week and follow up with Dr. Munroe. This morning, Ms. Roth was found to be slightly edematous in the lower extremity. Her vitals are all stable. We started her on low-dose combination of Aldactone with hydrochlorothiazide which will serve as a diuretic and at the same time, blood pressure control, and she will follow up with Dr. Munroe. Time spent for discharge is 38 minutes. cc: MD ROSAMARIA Oliver
[2019-08-02] MEDS ORDERED: SODIUM BICARBONATE PO SCH (12:15)
[2019-08-02] MEDS: ROCEPHIN 1 GM in NS 50 ML IV SCH (15:01)
== END 2019-08-02 17:09 | DRG 305 ==
LOC: SUPCPDRO → ED 13:33 → SUATTDRO 20:35 → EDIPHOLD 20:35 → 2N 07-26 14:10 → 3N 07-28 14:38
PROVIDERS: ATTEND Internal Medicine

== ENCOUNTER 2019-10-12 21:17 | Inpatient (IN) ==
[2019-10-12] MEDS ORDERED: ZOFRAN IV ONE (21:51)
[2019-10-12] MEDS ORDERED: NS 1,000 ML IV ONE (21:51)
[2019-10-12] MEDS ORDERED: MORPHINE IV ONE (21:51)
[2019-10-12] MEDS ORDERED: KEFZOL 1 GM/D5W 1 GM/50 ML IVPB IV ONE (21:52)
[2019-10-12] MEDS ORDERED: XYLOCAINE 1%/EPI 1:100,000 INJ ONE (21:52)
[2019-10-12] MEDS ORDERED: BOOSTRIX VACCINE IM ONE (21:54)
--- NOTE | 2019-10-12 21:55 | Diag Imaging Result Doc PS360 ---
EXAM: CT HEAD/C-SPINE W/O CONTRAST INDICATION: fall TECHNIQUE: This exam was performed using automated exposure control, adjustment of mA or kV according to patient size, and/or use of iterative reconstruction technique. COMPARISON: 06/14/2019 FINDINGS: Head: There is stable diffuse brain atrophy and there is stable patchy low attenuation in the periventricular and subcortical white matter consistent with advanced microangiopathy. There is no definite acute infarct given the limited sensitivity of CT versus MRI. There is no discrete intracranial mass, mass effect, or intracranial hemorrhage. There is a right frontal scalp hematoma. The calvaria is intact. C-spine: There is advanced multilevel facet arthropathy throughout the cervical spine with several posterior elements of the upper cervical spine used. There is also degenerative disc disease that is most significant at and below the C4-5 level. Facet arthropathy is causing mild anterolisthesis of C4 on C5. All of these changes are stable, however. Otherwise, there is no discrete fracture, acute subluxation, or intrinsic osseous lesion. The surrounding soft tissues are essentially unremarkable. IMPRESSION: 1.Stable chronic intracranial changes but no evidence of acute intracranial pathology. 2.Right frontal scalp hematoma. 3.Stable multilevel degenerative arthropathy but no evidence of fracture or other definite acute C-spine injury. Electronically signed by Blayne Gilmore 10/12/2019 9:52 PM
[2019-10-12 22:39] LABS: BASO# 0.01 X1000 (0.0-0.2); BASO% 0.1 % (0.0-0.8); EOS# 0.13 X1000 (0.0-0.7); EOS% 1.6 % (0.0-10.0); HEMATOCRIT 30.6 % (37.0-47.0); HEMOGLOBIN 9.7 g/dL (12.0-16.0); IMM GRAN# 0.03 X1000 (0.0-0.04); IMM GRAN% 0.4 % (0.0-0.5); LYMPH# 1.74 X1000 (1.2-3.4); MCH 28.8 PG (27-31); MCHC 31.7 g/dL (33-37); MCV 90.8 FL (81-99); MONO# 0.75 X1000 (0.11-0.59); MONO% 9.5 % (1.7-9.3); MPV 10.1 FL (7.4-10.4); NEUT# 5.26 X1000 (1.4-6.5); NEUT% 66.4 % (42.2-75.2); PLT 188 X1000 (130-400); RBC 3.37 XMIL (4.2-5.4); RDW 13.4 % (11.5-14.5); WBC 7.92 X1000 (4.8-10.8)
[2019-10-12 22:47] LABS: INR 0.92; PROTIME 12.4 Seconds (11.0-16.0); PTT 25.9 Seconds (22.3-41.8)
[2019-10-12 22:57] LABS: ALB/GLOB RATIO 1.3; ALBUMIN 3.3 g/dL (3.5-5.0); CALCIUM 9.5 mg/dL (8.8-10.2); CREATININE 2.1 mg/dL (0.5-0.9); MAGNESIUM 1.7 mg/dL (1.5-2.7); POTASSIUM 4.7 mmol/L (3.5-5.1); TOTAL BILIRUBIN 0.23 mg/dL (0.20-1.00); TOTAL PROTEIN 5.9 g/dL (6.3-8.3)
[2019-10-12] MEDS ORDERED: LABETALOL IV ONE (23:16)
[2019-10-12 23:17] LABS: URINE SOURCE CATH
[2019-10-12 23:19] LABS: BILIRUBIN URINE NEGATIVE (NEGATIVE); BLOOD URINE NEGATIVE (NEGATIVE); COLOR YELLOW; GLUCOSE URINE NEGATIVE (NEGATIVE); KETONE URINE NEGATIVE (NEGATIVE); LEUKOCYTES URINE MODERATE (NEGATIVE); NITRITE URINE POSITIVE (NEGATIVE); PH URINE 6.5; PROTEIN URINE 300 mg/dL (NEGATIVE); SP GRAVITY URINE 1.012; TURBIDITY URINE CLEAR (CLEAR); UROBILINOGEN URINE NORMAL (NORMAL)
[2019-10-12 23:20] LABS: UR EPITHELIAL CELLS <10 /HPF (<10); URINE BACTERIA 4+ /HPF; URINE RBC <10 /HPF (<10); URINE WBC TNTC /HPF (<10)
[2019-10-12] MEDS ORDERED: NS 1,000 ML ONE (23:55)
[2019-10-12 23:58] LABS: UR AMPHETAMINES QUAL NONE DETECTED (NONE DETECT); UR BARBITUATES QUAL NONE DETECTED (NONE DETECT); UR BENZODIAZEPIN QUAL NONE DETECTED (NONE DETECT); UR CANNABINOIDS QUAL NONE DETECTED (NONE DETECT); UR COCAINE QUAL NONE DETECTED (NONE DETECT); UR METHADONE QUAL NONE DETECTED (NONE DETECT); UR OPIATES QUAL PRESUMPTIVE POSITIVE (NONE DETECT); UR OXYCODONE QUAL NONE DETECTED (NONE DETECT); UR PCP QUAL NONE DETECTED (NONE DETECT)
[2019-10-13] MEDS ORDERED: ROCEPHIN 1 GM in NS 50 ML IV ONE (00:51)
--- NOTE | 2019-10-13 01:01 | PROVIDER DOCUMENTATION ---
This chart was entered by Giovanna Woo Scribe, acting as scribe for Bernard Davidson MD. HPI-General Adult - General Chief Complaint: Head Injury Stated Complaint: fall Time Seen by Provider: 10/12/19 21:40 Source: patient Allergies/Adverse Reactions: Patient Allergies Allergy/AdvReac Type Severity Reaction Status Date / Time No Known Allergies Allergy Verified 04/04/19 19:38 Home Medications: Home Medication List Medication Instructions Recorded Confirmed Last Taken Type Carvedilol [Coreg] 25 mg PO BID 11/02/17 07/25/19 1 Day Ago History ~06/13/19 Clonidine [Catapres] 0.2 mg PO TID 11/02/17 07/25/19 12/09/17 History Clopidogrel [Plavix] 75 mg PO DAILY 11/02/17 07/25/19 1 Day Ago History ~06/13/19 Insulin Aspart [Novolog Flexpen] 100 unit SQ DIRECTED 11/02/17 07/25/19 12/09/17 History Insulin Detemir [Levemir Flextouch] 46 unit SQ DAILY 11/02/17 07/25/19 1 Day Ago History ~06/13/19 Melatonin 3 mg PO QHS 04/04/19 07/25/19 1 Day Ago History ~06/13/19 Sennosides [Senna Laxative] 8.6 mg PO QHS 04/04/19 07/25/19 Unknown History Atorvastatin Calcium [Lipitor] 80 mg PO QHS 06/14/19 07/25/19 1 Day Ago History ~06/13/19 Carboxymethylcellulose Sodium 15 ml OPHTHALMIC (EYE) BID 06/14/19 07/25/19 Unknown History [Refresh Liquigel] Multivitamin,Therapeutic [Thera] 1 ea PO DAILY 06/14/19 06/14/19 Unknown History Triamcinolone Acetonide [Nasacort] 10.8 ml NS DAILY 06/14/19 06/14/19 Unknown History Diltiazem HCl [Diltiazem 12Hr ER] 120 mg PO DAILY 07/25/19 07/25/19 Unknown History Docusate Sodium 100 mg PO PRN PRN 07/25/19 07/25/19 Unknown History Cephalexin [Keflex] 500 mg PO Q12H #10 cap 07/31/19 Unknown Rx Duloxetine [Cymbalta] 60 mg PO DAILY #30 cap 07/31/19 Unknown Rx Hydrocodone/APAP 5 mg/325 mg 1 ea PO TID@0800,1400,2300 #30 tab 07/31/19 Unknown Rx [[place]-5] Isosorbide Mononitrate [Ismo] 20 mg PO BID #120 tab 07/31/19 Unknown Rx Hydralazine [Apresoline] 50 mg PO TID #120 tab 08/02/19 Unknown Rx Spironolactone/Hctz [Aldactazide 1 ea PO DAILY #120 tab 08/02/19 Unknown Rx ] - History of Present Illness -Gen Adult Nature of Presenting Problems: pt is a 79 yr old female presenting via EMS from [facility] assisted living post fall. pt reports while bent over putting medication on her bottom she lost her balance and fell forward striking her head. brief LOC pt does admit headache, neck pain and right shoulder pain. pt hx of prior CVA with right side deficits. pt is currently on plavix. pressure bandage applied [employer] to head laceration, bleeding not controlled Location of Pain/Injury: reports: head, neck, upper extremity (right shoulder) Pain Radiation: reports: no radiation Quality of Pain: reports: aching Severity: reports: moderate Onset/Duration: reports: just prior to arrival Timing: reports: still present Context/Activities at Onset: reports: recent trauma history (fall tonight) Modifying Factors: improves with: other (pressure bandage applied to head lac- bleeding not controlled) Associated Symptoms: reports: back/neck pain (neck), headaches, joint pain (right shoulder), syncope, other (laceration). denies: dizziness Similar Symptoms Previously?: No Recently seen or treated by another doctor?: No Review of Systems - Adult - REVIEW OF SYSTEMS - ADULT Constitutional: reports: no symptoms reported Eyes: reports: no symptoms reported Ears, Nose, Mouth & Throat: reports: no symptoms reported Cardiovascular: reports: syncope. denies: chest pain Respiratory: reports: no symptoms reported Gastrointestinal: reports: no symptoms reported Genitourinary: reports: no symptoms reported Musculoskeletal: reports: no symptoms reported Integumentary: reports: no symptoms reported Neurological: reports: no symptoms reported Psychiatric: reports: no symptoms reported Endocrine: reports: no symptoms reported Hematologic/Lymphatic: reports: no symptoms reported Allergic/Immunologic: reports: no symptoms reported All Other Systems: Reviewed and Negative Past History - Adult - PAST MEDICAL HISTORY-ADULT Review of Records: reports: Old Records Reviewed, Nursing Assessment Review, Medications Reviewed, Social history reviewed & non-contributory. Major Childhood Illnesses: reports: denies history Cardiovascular: reports: CAD, CHF, HTN, hyperlipidemia, NM Respiratory: reports: sleep apnea Gastrointestinal: reports: colitis, GERD, IBS, pancreatitis Obstetrical/Gynecological: reports: denies history Genitourinary: reports: denies history Musculoskeletal: reports: denies history Neurological: reports: CVA, dementia Psychiatric: reports: anxiety Endocrine/Immune: reports: Diabetes, thyroid disorder Other Conditions: reports: other - PRIOR SURGERIES/PROCEDURES Surgical/Procedure History: reports: recent surgery, cholecystectomy, hysterectomy, tonsillectomy, hernia repair, other (mastectomy ) - PRIOR HOSPITALIZATIONS Prior Hospitalizations: reports: for other non-related - IMMUNIZATION STATUS Childhood Immunizations: See Nurse Assessment Flu Vaccine: See Nurse Assessment - FAMILY HISTORY Family History: reviewed, not pertinent - SOCIAL HISTORY Living Situation: care facility (assisted living) Physical Exam-General - PHYSICAL EXAM-ADULT Initial Vital Signs Reviewed: Yes - CONSTITUTIONAL General Appearance: alert, no apparent distress - EYES Eyes: PERRL/EOMI - HEAD, EARS, NOSE, MOUTH & THROAT HENMT: other (2cm puncture wound toskull and irregular laceration to upper right forehead-bleeding not controlled with pressure dressing) - NECK Neck: full range of motion, supple, normal inspection - RESPIRATORY Respiratory: chest non-tender, lungs clear, normal breath sounds, no respiratory distress, no accessory muscle use - CARDIOVASCULAR Cardiovascular: normal peripheral pulses, regular rate, rhythm, other (4+pitting edema) - GASTROINTESTINAL (ABDOMEN) Abdominal Exam: normal bowel sounds, non tender, soft - LYMPHATIC Lymphatic: no adenopathy - MUSCULOSKELETAL Back Exam: normal inspection Extremity: normal range of motion, pedal edema (4+pedal edema) - SKIN Integumentary: normal color, normal turgor, warm/dry, laceration(s) (2cm puncture wound to skull and irregular laceration to right upper forehead) - PSYCHIATRIC Psych/Mental Status: normal mood/affect Progress - PLAN OF CARE/RESULTS Progress/Plan/Lab Results: Orders Category Date Time Status Nursing- Obtain EKG once Care 10/12/19 21:53 Active Straight Catheterization ORDERED Care 10/12/19 21:54 Active Suture Tray Set-Up DIRECTED Care 10/12/19 21:54 Active CHEST-PORTABLE [RAD] Stat Exams 10/12/19 21:[address] HEAD/C-SPINE W/O CONTRAST [CT] Stat Exams 10/12/19 21:18 Completed TRAUMA SHOULDER RIGHT [RAD] Stat Exams 10/12/19 21:54 Ordered ALCOHOL BLOOD Stat Lab 10/12/19 21:53 Uncollected CBC WITH ELECTRONIC DIFF [HEME] Stat Lab 10/12/19 21:54 Uncollected COMPREHENSIVE METABOLIC PANEL [CHEM] Stat Lab 10/12/19 21:53 Uncollected MAGNESIUM [CHEM] Stat Lab 10/12/19 21:53 Uncollected PRO B-NATRIURETIC PEPTIDE Stat Lab 10/12/19 21:53 Uncollected PROTIME WITH INR [COAG] Stat Lab 10/12/19 21:53 Uncollected PTT [COAG] Stat Lab 10/12/19 21:53 Uncollected TROPONIN T HIGH SENSITIVITY Stat Lab 10/12/19 21:53 Uncollected URINALYSIS W/POSS RFLX CULT [URINALYSIS] Stat Lab 10/12/19 21:53 Uncollected URINE DRUG SCREEN Stat Lab 10/12/19 21:53 Uncollected 0.9% Sodium Chloride Inj [Ns] 1,000 ml Med 10/12/19 21:51 Active IV 999 mls/hr Cefazolin 1 gm/D5w [Kefzol 1 gm/D5w] Med 10/12/19 21:52 Active 1 gm in 50 ml IV NOW Diph,Pertuss(Acell),Tet Vac/Pf [Boostrix Vaccine] Med 10/12/19 21:54 Discontinued 0.5 ml IM .ONCE ONE Lidocaine 1%/Epi 1:100,000 [Xylocaine 1%/Epi 1:100,000] Med 10/12/19 21:52 Discontinued 20 ml INJ NOW ONE Morphine Med 10/12/19 21:51 Discontinued 2 mg IV NOW ONE Ondansetron [Zofran] Med 10/12/19 21:51 Discontinued 4 mg IV NOW ONE EKG [EKG] Stat Ther 10/12/19 21:53 Ordered Result Diagrams: 10/12/19 22:00 10/12/19 22:00 - REASSESSMENT Reassessment #1 Time Reassessed: 00:59 Status: improving (Given IV labetalol for hypertension, IV rocephin for UTI, IV morphine/zofran for pain.) Reassessment Comment: old chart reviewed, mult visits for similar symptoms. - EKG 1 Time of EKG reading by physician:: 23:04 EKG Read and Signed by:: Bernard Davidson EKG Interpretation (*Must complete 3 of following elements*): Abnormal (LAE) Rate: 73 Rhythm: nsr [place]: normal QRS: normal ST Wave: non-specific ST changes - XRAY 1 XRAY: Right XRAY Study: Shoulder Impression: See EMR Report 2 XRAY Study: Chest Impression: See EMR Report - CT/MRI 1 CT Study: Abdomen, Cervical Spine Impression: Abnormal (Department of Imaging Patient: RADHA LOWRY Date: 10/12/19#: [id number] : 9ADM Status: PRE ERAt#: [id number] Age/Sex: 79/FRoom/Bed: Loc: ED Ordering Physician: Bernard Davidson MD Family Physician: Reason for Procedure: fall Signed EXAM: CT HEAD/C-SPINE W/O CONTRAST INDICATION: fall TECHNIQUE: This exam was performed using automated exposure control, adjustment of mA or kV according to patient size, and/or use of iterative reconstruction [facility]. COMPARISON: 06/14/2019 FINDINGS: Head: There is stable diffuse brain atrophy and there is stable patchy low attenuation in the periventricular and subcortical white matter consistent with advanced microangiopathy. There is no definite acute infarct given the limited sensitivity of CT versus MRI. There is no discrete intracranial mass, mass effect, or intracranial hemorrhage. There is a right frontal scalp hematoma. The calvaria is intact. C-spine: There is advanced multilevel facet arthropathy throughout the cervical spine with several posterior elements of the upper cervical spine used. There is also degenerative disc disease that is most significant at and below the C4-5 level. Facet arthropathy is causing mild anterolisthesis of C4 on C5. All of these changes are stable, however. Otherwise, there is no discrete fracture, acute subluxation, or intrinsic osseous lesion. The surrounding soft tissues are essentially unremarkable. IMPRESSION: 1.Stable chronic intracranial changes but no evidence of acute intracranial pathology. 2.Right frontal scalp hematoma. 3.Stable multilevel degenerative arthropathy but no evidence of fracture or other definite acute C-spine injury. Electronically signed by Blayne Gilmore 10/12/2019 9:52 PM 10/12/192151 Interpreting Physician: Blayne Gilmoer MD Dictated Date/Time: 10/12/192144) Comparison with other Films: no changes (06/14/19) - CONSULTS/PCP/HOSPITALIST Notification #1 *Consult/PCP/Hospitalist*: Omkar Time Discussed: 00:58 Consult Disposition: Will see in ED, Admit Procedures - LACERATION/WOUND REPAIR/FB Right Upper See Other Wound Location: Other: forehead Wound Length: 2cm Wound's Depth, Shape: superficial, irregular Wound Explored/Foreign Body: clean Irrigated with Saline?: Yes Prepped with: Kit Utilized Anesthetic: 1%, Lidocaine w/ Epinephrine Volume of Anesthetic (ml's): 8 Wound Debrided: minimal Wound Repaired with: Sutures Suture Size/Type: 4.0, Nylon Number of Sutures: 7 Layer Closure?: Yes Deep Layer Suture Size/Type: 4.0, Nylon Number Deep Layer Sutures: 2 Sterile Dressing Applied?: Yes Procedure Comment: approx 50ml blood loss Departure - Departure Date of Disposition Decision: 10/13/19 Time of Disposition Decision: 00:58 DIAGNOSIS: Syncope and collapse, Urinary tract infection, bacterial Laceration of face, complex Qualifiers: Encounter type: initial encounter Qualified Code(s): S01.91XA - Laceration without foreign body of unspecified part of head, initial encounter Hypertension Qualifiers: Hypertension type: essential hypertension Qualified Code(s): I10 - Essential (primary) hypertension Disposition: ADMITTED INPATIENT 09 Certified Medical Emergency: Emergent Condition: Fair Referrals and Follow-Ups: UNKNOWN, [Primary Care Provider] - - Critical Care Note This patient required my direct & personal management of CC.: Yes Attestation - Physician/ GONSALO Attestation Patient care was provided by Advanced Practice Provider:: No The physician spent face to face time with patient:: Yes Advanced Practice Provider documentation review:: Supervising physician onsite and consulted in the evaluation and care of this patient. The physician did have a face to face encounter with the patient. This chart was documented by the indicated scribe, (Giovanna Woo, Mariam) and accurately reflects the services I performed and decisions made by me, Bernard Davidson MD, as attested by the provider's signature.
[2019-10-13] MEDS ORDERED: APRESOLINE IV ONE (02:57)
[2019-10-13] MEDS ORDERED: MORPHINE IV ONE (02:57)
[2019-10-13 03:18] LABS: HEMOGLOBIN A1C 6.6 % (4.8-6.0)
[2019-10-13] MEDS ORDERED: COLACE PO PRN (05:15)
[2019-10-13] MEDS ORDERED: MORPHINE IV PRN (05:17)
[2019-10-13] MEDS: APRESOLINE IV PRN (06:28)
[2019-10-13] MEDS ORDERED: ZOFRAN IV PRN (06:31)
--- NOTE | 2019-10-13 07:39 | HISTORY AND PHYSICAL ---
PRIMARY CARE PROVIDER: Unknown. CHIEF COMPLAINT: Fall. HISTORY OF PRESENT ILLNESS: This is an 79-year-old female who had a fall with a head injury. She lives at [facility], assisted living. Apparently she bent over putting medication on her bottom and she lost her balance and fell forward hitting her head. She denies loss of consciousness. She admits to a headache, neck pain, and right shoulder pain. She does have a history of a prior CVA with some right-sided weakness. She is currently taking Plavix. She had around a 2 cm puncture and laceration. She was sutured in the E.R. and a somewhat occlusive dressing was placed over the right eye. There was mild ecchymosis and edema to the right eye and the orbit as well. CT scan of her cervical spine and head were obtained which ruled out bleed or fracture or subluxation of the cervical spine. She will be admitted for further evaluation and treatment. PAST MEDICAL HISTORY: Hypertension, longstanding diabetes mellitus with peripheral neuropathy, hypothyroidism, recurrent pancreatitis, breast cancer, CVA with minimal right- sided weakness, dementia, anemia, gout, osteoarthritis, weakness, recurrent UTI, and hyperlipidemia. SOCIAL HISTORY: She lives at assisted living. She is . No alcohol, tobacco, or illicit drugs. FAMILY HISTORY: History of coronary artery disease, hyperlipidemia, stroke, and diabetes mellitus. ALLERGIES: No known allergies. HOME MEDICATIONS: Keflex 500 mg p.o. every 12 hours, [place] 5 mg t.i.d., insulin aspart sliding scale, Levemir 46 units subcutaneously daily, atorvastatin 80 mg p.o. nightly at bedtime, Coreg 25 mg p.o. b.i.d., Plavix 75 mg p.o. daily, diltiazem 120 mg p.o. daily, docusate sodium 100 mg p.o. daily, duloxetine 60 mg p.o. daily, hydralazine 50 mg p.o. t.i.d., isosorbide mononitrate 20 mg p.o. b.i.d., melatonin 3 mg p.o. nightly at bedtime, multivitamin 1 p.o. daily, Senna laxative 8.6 mg p.o. daily, spironolactone hydrochlorothiazide 25 mg/25 mg 1 p.o. daily, and Nasacort inhalation daily. REVIEW OF SYSTEMS: A 14 point review of systems was conducted with the patient. She had complaints of dizziness but no loss of consciousness, right head pain, headache, right eye pain, right shoulder pain, urinary frequency, and edema in the bilateral lower extremities. All other systems were reviewed and found to be negative. PHYSICAL EXAMINATION: VITAL SIGNS: Temp is 97.8, pulse 74, respirations 16, blood pressure 112/86, and oxygen saturation 98% on room air. GENERAL: An 79-year-old female lying in the E.R. stretcher. She is alert and oriented to person, place, and situation and disoriented to time. She is in no acute distress. HEENT: Head is normocephalic. Right-sided laceration above the eye with occlusive dressing has sutures. Bleeding is controlled. Right eye and orbit ecchymosis and edema. Pupils are equal, round, and reactive to light. Extraocular eye movement is intact. Sclerae are anicteric. Conjunctivae are pink. Oral mucosa is moist. NECK: Supple. No JVD. No thyromegaly. Trachea is midline. No cervical lymphadenopathy. CARDIAC: S1 and S2 are appreciated. No murmurs, gallops, or rubs. LUNGS: Clear to auscultation bilaterally. No rhonchi, wheezes, or rales. Symmetric rise and fall with respirations. ABDOMEN: Soft, nondistended, and nontender. Bowel sounds are present in all 4 quadrants, normoactive. No pulsatile mass. No organomegaly. EXTREMITIES: Bilateral lower extremities have 3+ pitting edema. No cyanosis. No clubbing. NEUROLOGICAL: Awake, alert, and oriented to person, place, and situation. Disoriented to time. She follows all commands. Cranial nerves 2 through 12 appear to be grossly intact. MUSCULOSKELETAL: The right side is slightly weaker than the left side from previous CVA. DIAGNOSTIC DATA: CT of the head and cervical spine shows a right front scalp hematoma, stable multilevel degenerative arthropathy, no acute cervical spine injury, and no acute bleed or CVA. LABORATORY DATA: WBC is 7.92, hemoglobin 9.7, hematocrit 30.6, and platelet count 188. INR is 0.92. Sodium is 139, potassium 4.7, chloride 102, carbon dioxide 23, BUN 43, creatinine 2.1, and glucose 164. Urine: Nitrite positive, leukocyte esterase positive, too numerous to count WBCs, and 4+ bacteria. ASSESSMENT: 1. Uncontrolled hypertension. 2. Fall with head trauma. 3. Urinary tract infection. 4. Lifelong diabetes mellitus. 5. History of cerebrovascular accident with right-sided weakness. PLAN: Admit the patient to the medical floor with telemetry. She has recently had an echo I believe this July and we will not repeat at this time. She does have bilateral lower extremity edema. We will start Lasix 40 mg IV every 12 hours and morphine as needed for pain. Continue home medications. Fingerstick blood sugars before meals and at bedtime. We will start Rocephin 1 g IV every 24 hours. Added p.r.n.s for hypertension. Further recommendations per the patient's clinical course. Dictated by JEOVANY Miller for Keo Espitia MD I have performed a face to face diagnostic evaluation. Labs/Xrays- reviewed, Exam- HEENT- forehead hematoma.Chest- clear, CV- regular, Abd- soft. A/P- Syncope, HTN, UTI- Admit, orthostatics, fall precautions, monitor BP, check urine culture, IV ABX. Dr. Espitia cc: JEOVANY Miller MD [facility]
[2019-10-13] MEDS: HUMALOG SUBQ SCH ×4 (07:43→21:24)
--- NOTE | 2019-10-13 07:48 | Diag Imaging Result Doc PS360 ---
EXAM: CHEST-PORTABLE INDICATION: syncope TECHNIQUE: One view COMPARISON: 07/25/2019 FINDINGS: There is motion artifact at the left lung base. The lungs are grossly clear. There is no discrete pleural fluid collection or pneumothorax. The cardiomediastinal silhouette and central vasculature are grossly unremarkable. IMPRESSION: No evidence of acute pathology by plain radiograph. Electronically signed by Blayne Gilmore 10/13/2019 7:45 AM
--- NOTE | 2019-10-13 08:34 | Diag Imaging Result Doc PS360 ---
EXAM: TRAUMA SHOULDER RIGHT INDICATION: injury TECHNIQUE: 2 views COMPARISON: Right humerus radiograph dated 04/30/2014 FINDINGS: There is a fracture involving the distal tip of the clavicle with mild superior displacement. No other fracture or dislocation is appreciated. There are degenerative changes at the AC joint and the glenohumeral joint. The surrounding soft tissues are essentially unremarkable. IMPRESSION: Fracture of the distal clavicle as described. Electronically signed by Blayne Gilmore 10/13/2019 8:32 AM
[2019-10-13] MEDS ORDERED: LEVEMIR SUBQ SCH (09:00)
[2019-10-13] MEDS: LASIX IV SCH ×2 (09:08→21:19)
[2019-10-13] MEDS: ISMO PO SCH ×2 (09:09→21:19)
[2019-10-13] MEDS: HYDROCHLOROTHIAZIDE PO SCH (09:10)
[2019-10-13] MEDS: CARDIZEM CD PO SCH (09:10)
[2019-10-13] MEDS: PLAVIX PO SCH (09:10)
[2019-10-13] MEDS: ALDACTONE PO SCH (09:10)
[2019-10-13] MEDS: THERA M PLUS PO SCH (09:10)
[2019-10-13] MEDS: CYMBALTA PO SCH (09:11)
[2019-10-13] MEDS: APRESOLINE PO SCH ×3 (10:35→21:20)
[2019-10-13] MEDS: CATAPRES PO SCH ×3 (10:35→21:20)
[2019-10-13] MEDS: COREG PO SCH ×2 (10:36→21:20)
[2019-10-13] MEDS: FLONASE NAS SCH (10:52)
[2019-10-13] MEDS: TEARISOL OPH SOLUTION BOTH EYES SCH ×2 (10:53→21:19)
[2019-10-13] MEDS: TYLENOL PO PRN ×2 (11:57→21:24)
[2019-10-13] MEDS: MELATONIN PO SCH (21:19)
[2019-10-13] MEDS: LIPITOR PO SCH (21:19)
[2019-10-13] MEDS: SENOKOT PO SCH (21:20)
[2019-10-14] MEDS: APRESOLINE IV PRN (05:55)
[2019-10-14] MEDS: HUMALOG SUBQ SCH ×4 (06:26→21:12)
[2019-10-14 07:00] LABS: BASO# 0.01 X1000 (0.0-0.2); BASO% 0.2 % (0.0-0.8); EOS# 0.08 X1000 (0.0-0.7); EOS% 1.4 % (0.0-10.0); HEMATOCRIT 26.9 % (37.0-47.0); HEMOGLOBIN 8.4 g/dL (12.0-16.0); LYMPH# 1.67 X1000 (1.2-3.4); LYMPH% 29.7 % (20.5-51.1); MCH 28.7 PG (27-31); MCHC 31.2 g/dL (33-37); MCV 91.8 FL (81-99); MONO# 0.51 X1000 (0.11-0.59); MONO% 9.1 % (1.7-9.3); NEUT# 3.35 X1000 (1.4-6.5); NEUT% 59.6 % (42.2-75.2); PLT 167 X1000 (130-400); RBC 2.93 XMIL (4.2-5.4); RDW 13.3 % (11.5-14.5); WBC 5.62 X1000 (4.8-10.8)
[2019-10-14 07:06] LABS: CALCIUM 9.3 mg/dL (8.8-10.2); CREATININE 1.9 mg/dL (0.5-0.9); POTASSIUM 4.3 mmol/L (3.5-5.1)
[2019-10-14] MEDS: ROCEPHIN 1 GM in NS 50 ML IV SCH (08:00)
[2019-10-14] MEDS: APRESOLINE PO SCH ×3 (08:05→21:07)
[2019-10-14] MEDS: THERA M PLUS PO SCH (08:05)
[2019-10-14] MEDS: CARDIZEM CD PO SCH (08:05)
[2019-10-14] MEDS: ALDACTONE PO SCH (08:05)
[2019-10-14] MEDS: HYDROCHLOROTHIAZIDE PO SCH (08:05)
[2019-10-14] MEDS: LASIX IV SCH (08:05)
[2019-10-14] MEDS: COREG PO SCH ×2 (08:06→21:07)
[2019-10-14] MEDS: CYMBALTA PO SCH (08:06)
[2019-10-14] MEDS: CATAPRES PO SCH ×3 (08:06→21:08)
[2019-10-14] MEDS: ISMO PO SCH ×2 (08:06→21:08)
[2019-10-14] MEDS: PLAVIX PO SCH (08:06)
[2019-10-14] MEDS: TEARISOL OPH SOLUTION BOTH EYES SCH ×2 (08:07→21:11)
[2019-10-14] MEDS: TYLENOL PO PRN ×2 (08:08→21:08)
[2019-10-14] MEDS: FLONASE NAS SCH (08:38)
--- NOTE | 2019-10-14 13:54 | PROGRESS NOTE ---
DATE: 10/14/2019 INTERVAL HISTORY: The patient is a little somnolent this morning. Complaining of some discomfort with her right head hematoma and laceration. No other acute events overnight. REVIEW OF SYSTEMS: Twelve point review of systems is negative except as per interval history. LABS: WBC 5.6, hemoglobin 8.4, hematocrit 26.9, platelets 167,000. Sodium 138, potassium 4.3, BUN 41, creatinine 1.9, glucose 160 to 267. TSH 1.17. Urine culture growing gram-negative rods. VITAL SIGNS: T-max 98.3 degrees, pulse 85, respirations 15, blood pressure 137/51, O2 saturation 96% on room air. PHYSICAL EXAMINATION: General: No acute distress. Vitals: As above. HEENT: Right anterior and lateral head with large hematoma. Sutured laceration noted, appears to be stable. Edema extends to the eyebrow ridge but does not really involve the eye itself. Cardiovascular: Regular rate and rhythm. No murmurs noted. Pulmonary: Clear to auscultation bilaterally. No wheezing, rales, or rhonchi. Abdomen: Soft, nontender, nondistended. Bowel sounds positive. Extremities: Peripheral pulses intact. No clubbing or cyanosis. There is 1+ pitting edema noted. Neurologic: The patient is somnolent but arousable. Will follow simple commands with repeated instruction. Oriented to person, place, and year but not month. A lot of her responses do not make a whole lot of sense. ASSESSMENT AND PLAN: 1. Fall with head trauma. Patient fell yesterday and was brought in. Had a large right head hematoma and laceration which was sutured in the emergency room. Pretty stable from that standpoint. Imaging did not show any intracranial or upper spinal injury. The patient denied syncope. 2. Metabolic encephalopathy. Not sure as to her exact baseline. Quite somnolent and mildly confused this morning but may be due to the pain medicine she got about an hour before I saw her. We will stop morphine and give her tramadol as needed, and see what her mental status does over the next day. Urinary tract infection, as below, could also be contributing. 3. Urinary tract infection. Patient with labs suggestive of urinary tract infection and urine culture growing out gram-negative rods. The patient was placed on antibiotics with Rocephin, which we will continue. 4. Hypertension. Reasonable control of blood pressure on home Coreg, clonidine, diltiazem, hydralazine, hydrochlorothiazide, isosorbide mononitrate. 5. Diabetes mellitus. The patient's glucose control is not ideal. Currently on just sliding scale insulin. We will go ahead and place her on her home Levemir at a reduced dose and monitor. 6. Likely dementia. May also be plain altered mental status. We will see what she does over the next day. 7. Anemia, stable. Monitor. 8. Hyperlipidemia. Continue home statin. 9. Chronic kidney disease 4. Creatinine stable. 10. Disposition. We will see what her mental status does overnight but hopefully home tomorrow if she remains stable.
[2019-10-14] MEDS: LEVEMIR SUBQ SCH (14:37)
[2019-10-14] MEDS ORDERED: CALMOSEPTINE OINTMENT TOP PRN (17:24)
[2019-10-14] MEDS: MELATONIN PO SCH (21:07)
[2019-10-14] MEDS: SENOKOT PO SCH (21:08)
[2019-10-14] MEDS: LIPITOR PO SCH (21:08)
[2019-10-15] MEDS: ULTRAM PO PRN ×2 (02:06→21:27)
[2019-10-15] MEDS: TYLENOL PO PRN ×3 (02:06→17:29)
[2019-10-15] MEDS ORDERED: CALMOSEPTINE OINTMENT TOP PRN (03:24)
[2019-10-15] MEDS: HUMALOG SUBQ SCH ×5 (06:23→21:29)
--- NOTE | 2019-10-15 07:38 | EKG Report ---
Test Performed on : 10/12/2019 11:04:18 PM Test Reason : fall Blood Pressure : / mmHG Vent. Rate : 073 BPM Atrial Rate : 073 BPM P-R Int : 178 ms QRS Dur : 080 ms QT Int : 382 ms P-R-T Axes : 068 064 088 degrees QTc Int : 420 ms Normal sinus rhythm. Possible Left atrial enlargement Nonspecific T wave abnormality Abnormal ECG When compared with ECG of 25-JUL-2019 15:02, Criteria for Septal infarct are no longer present Unconfirmed Result
[2019-10-15] MEDS: ROCEPHIN 1 GM in NS 50 ML IV SCH (09:00)
[2019-10-15] MEDS: FLONASE NAS SCH (09:00)
[2019-10-15] MEDS: LASIX PO SCH (09:01)
[2019-10-15] MEDS: APRESOLINE PO SCH ×3 (09:01→21:27)
[2019-10-15] MEDS: ALDACTONE PO SCH (09:01)
[2019-10-15] MEDS: CATAPRES PO SCH ×3 (09:01→21:27)
[2019-10-15] MEDS: LEVEMIR SUBQ SCH (09:01)
[2019-10-15] MEDS: ISMO PO SCH ×2 (09:01→21:27)
[2019-10-15] MEDS: COREG PO SCH ×2 (09:01→21:27)
[2019-10-15] MEDS: HYDROCHLOROTHIAZIDE PO SCH (09:01)
[2019-10-15] MEDS: THERA M PLUS PO SCH (09:01)
[2019-10-15] MEDS: PLAVIX PO SCH (09:01)
[2019-10-15] MEDS: CARDIZEM CD PO SCH (09:01)
[2019-10-15] MEDS: CYMBALTA PO SCH (09:01)
[2019-10-15] MEDS: TEARISOL OPH SOLUTION BOTH EYES SCH ×2 (09:02→21:28)
[2019-10-15] MEDS ORDERED: FERROUS SULFATE PO ONE (12:53)
[2019-10-15] MEDS: LEVAQUIN 500 MG in NS 100 ML IV SCH (13:28)
--- NOTE | 2019-10-15 14:06 | PROGRESS NOTE ---
DATE: 10/15/2019 INTERVAL HISTORY: No acute events overnight. SUBJECTIVE: Ms. Roth is complaining of right-sided headache and right-sided shoulder pain. She denies any chest pain, shortness of breath, or cough. She denies nausea, vomiting, or abdominal pain. She is complaining of burning and pain while micturition. REVIEW OF SYSTEMS: Positive for dysuria. Positive for right-sided shoulder pain. Positive for right-sided temporal headache. OBJECTIVE: Vital Signs: Temperature 97.9 degrees, pulse 70, respiratory rate 18, blood pressure 147/62, saturating 98% on room air. General: Ms. Roth is not in acute distress. HEENT: Oral cavity is moist. Lungs: Air entry bilaterally equal. No wheeze, rhonchi, or crackles. Cardiovascular: S1, S2 normal. Regular. No murmur or gallop. Abdomen: Soft, nontender. Extremities: No lower extremity edema. She had a right-sided frontal scalp hematoma with sutures. She also had tenderness along the right shoulder and distal clavicular site. LABORATORY DATA: Hemoglobin of 8.4, platelets 167,000. BUN 41, creatinine 1.9, glucose 242. Her hemoglobin A1c was 6.6. TSH is 1.17. She has pyuria. MICROBIOLOGY: Urine culture growing Escherichia coli, which is sensitive to levofloxacin. IMAGING: Shoulder x-ray on presentation had distal clavicle fracture. ASSESSMENT AND PLAN: 1. Fall with right-sided scalp hematoma and right distal clavicular fracture. Her potential etiologies could be orthostatic hypotension since she is listed to be taking multiple antihypertensive medication and has had prior history of orthostatic hypotension. Head CT did not have any stroke. Currently on neurological examination, she has intact bilateral radial pulses, and she is able to move all extremities spontaneously. Will continue to address her pain with acetaminophen and tramadol as needed. I will consult Orthopedic physician for right- sided distal clavicular fracture management, and will consult Physical Therapy. 2. Acute encephalopathy on presentation, now resolved. Her intravenous opioids have been discontinued. Currently, she is alert and oriented x3. Her acute cystitis could have contributed to encephalopathy as well. 3. Acute cystitis without hematuria due to Escherichia coli. I will change her antibiotics from intravenous ceftriaxone to levofloxacin since Escherichia coli has been resistant to ceftriaxone. 4. Essential hypertension, history of coronary artery disease requiring stent in 2017. Continue her home high-dose atorvastatin, carvedilol, clonidine, clopidogrel, diltiazem, furosemide, hydralazine, and hydrochlorothiazide, along with isosorbide mononitrate. She is also listed to be taking spironolactone. I discussed with her about following up with regular physician for proper medication reconciliation, especially considering she has had history of orthostatic hypotension. 5. Acute blood loss anemia due to blood loss sustained after scalp injury. Start the patient on ferrous sulfate and multivitamin. Follow up CBC tomorrow. 6. History of insulin-dependent diabetes mellitus with uncontrolled hyperglycemia. I will continue her current dose of long-acting insulin, and start her on mealtime insulin. She is also on sliding scale insulin. 7. Others. She has history of hyperlipidemia, chronic kidney disease stage 4. I will consult Physical Therapy, and if there are no other orthopedic interventions planned, I would anticipate discharge back to assisted living facility with [facility] in the next 24 hours. I will let social insurance analyst know to notify the assisted living facility. cc: Karthikeyan Tobin MD
[2019-10-15] MEDS: LIPITOR PO SCH (21:27)
[2019-10-15] MEDS: SENOKOT PO SCH (21:27)
[2019-10-15] MEDS: MELATONIN PO SCH (21:27)
[2019-10-16] MEDS: TYLENOL PO PRN ×2 (01:27→09:39)
[2019-10-16 06:20] LABS: BASO# 0.01 X1000 (0.0-0.2); BASO% 0.2 % (0.0-0.8); EOS# 0.07 X1000 (0.0-0.7); EOS% 1.5 % (0.0-10.0); HEMATOCRIT 23.6 % (37.0-47.0); HEMOGLOBIN 7.3 g/dL (12.0-16.0); IMM GRAN# 0.02 X1000 (0.0-0.04); IMM GRAN% 0.4 % (0.0-0.5); LYMPH# 1.77 X1000 (1.2-3.4); LYMPH% 36.9 % (20.5-51.1); MCH 28.1 PG (27-31); MCHC 30.9 g/dL (33-37); MCV 90.8 FL (81-99); MONO# 0.44 X1000 (0.11-0.59); MONO% 9.2 % (1.7-9.3); NEUT# 2.49 X1000 (1.4-6.5); NEUT% 51.8 % (42.2-75.2); PLT 157 X1000 (130-400); RDW 13.3 % (11.5-14.5)
[2019-10-16 06:45] LABS: CALCIUM 8.7 mg/dL (8.8-10.2); CREATININE 2.2 mg/dL (0.5-0.9); POTASSIUM 4.5 mmol/L (3.5-5.1); PREALBUMIN 25.3 mg/dL (20-40)
[2019-10-16] MEDS: HUMALOG SUBQ SCH ×4 (07:23→12:13)
[2019-10-16 07:41] VITALS: BP 153/59
--- NOTE | 2019-10-16 08:58 | ORTHOPAEDICS CONSULTATION ---
DATE: 10/16/2019 CHIEF COMPLAINT: Right shoulder pain after a fall. HISTORY OF PRESENT ILLNESS: Ms. Roth is an 79-year-old female who had a fall in her assisted living. Apparently, she did hit her head. She did not lose consciousness and was able to hit her fall button. She states she lost a lot of blood. She did not lose consciousness. She did have a headache at the time of admission, she states, but this is better. She does complain of some neck pain as well as the right shoulder pain. She was taking Plavix because of a previous CVA. The ER was able to suture her and slow her bleeding down. An x-ray in the ER did show a right clavicle fracture. Orthopedics has been consulted for management of that. PAST MEDICAL HISTORY: 1. Hypertension. 2. Diabetes mellitus with neuropathy. 3. CVA with right-sided weakness. 4. Hypothyroidism. 5. Pancreatitis. 6. Dementia. 7. Anemia. 8. Gout. 9. Osteoarthritis. 10. Hyperlipidemia. SOCIAL HISTORY: She lives at the [facility]. She denies alcohol, tobacco, or illicit drug use. FAMILY HISTORY: Noncontributory. ALLERGIES: No known drug allergies. HOME MEDICATIONS: 1. Keflex 500 mg p.o. every 12 hours for recurrent UTIs. 2. Mercer 5 mg t.i.d. as needed. 3. Insulin sliding scale. 4. Levemir 46 units subcutaneous daily. 5. Atorvastatin 80 mg p.o. at bedtime. 6. Coreg 25 mg p.o. b.i.d. 7. Plavix 75 mg p.o. daily. 8. Cardizem 120 mg p.o. daily. 9. Colace 100 mg p.o. daily. 10. Hydralazine 50 mg p.o. t.i.d. 11. Imdur 20 mg p.o. b.i.d. 12. Melatonin 3 mg p.o. nightly. 13. MVI 1 p.o. daily. REVIEW OF SYSTEMS: A 10 point review of systems was conducted and negative except what was mentioned above in the HPI. PHYSICAL EXAMINATION: Vital Signs: Temperature is 97.9 degrees, pulse 71, respirations 16, blood pressure 133/59. She is 94% on room air. General: This is an 79-year-old female in no acute distress. HEENT: Head is normocephalic but she does have a right-sided laceration above the eye. She has quite a bit of ecchymosis there. There is no current bleeding. Pupils equal, round, reactive to light. Cardiovascular: Regular rate and rhythm. Lungs: Breathing is even and nonlabored. Abdomen: Appears nondistended. Extremities: She has tenderness to palpation over that distal clavicle. She does have pain with any range of motion. Her hand intrinsics are intact. She has a 2+ radial pulse. There are no lacerations or abrasions. She does have some ecchymosis around the neck and at the shoulder. Her hand intrinsics are intact. DIAGNOSTICS: A right shoulder x-ray reviewed and interpreted by Dr. Hernandez does show a distal clavicle fracture. ASSESSMENT: Right distal clavicle fracture. PLAN: The plan is to treat this nonoperatively. We will put her in a sling for 2 weeks. We do not want her doing a lot of movement at the shoulder. She can come out of the sling and flex and extend the elbow multiple times a day. When she goes back to rehab, we really do not want her doing a lot of rehab on the shoulder at this point. We definitely do not want her doing any lifting, pushing, or pulling. We do want her to follow up in the office and repeat some x-rays. We will plan for her to follow up with Dr. Hernandez as an outpatient. Please call with any questions or concerns. Thank you for the consultation. Dictated by JEOVANY Hernandez for Reuben Hernandez MD cc: JEOVANY Hernandez MD
[2019-10-16] MEDS ORDERED: FERROUS SULFATE PO SCH (09:00)
[2019-10-16] MEDS: LASIX PO SCH (09:36)
[2019-10-16] MEDS: LEVEMIR SUBQ SCH (09:36)
[2019-10-16] MEDS: ALDACTONE PO SCH (09:36)
[2019-10-16] MEDS: APRESOLINE PO SCH (09:37)
[2019-10-16] MEDS: FLONASE NAS SCH (09:37)
[2019-10-16] MEDS: ISMO PO SCH (09:37)
[2019-10-16] MEDS: CARDIZEM CD PO SCH (09:37)
[2019-10-16] MEDS: THERA M PLUS PO SCH (09:37)
[2019-10-16] MEDS: PLAVIX PO SCH (09:37)
[2019-10-16] MEDS: HYDROCHLOROTHIAZIDE PO SCH (09:37)
[2019-10-16] MEDS: CYMBALTA PO SCH (09:37)
[2019-10-16] MEDS: CATAPRES PO SCH (09:37)
[2019-10-16] MEDS: COREG PO SCH (09:37)
[2019-10-16] MEDS: TEARISOL OPH SOLUTION BOTH EYES SCH (09:38)
--- NOTE | 2019-10-16 11:42 | DISCHARGE SUMMARY ---
ADMISSION DATE: 10/12/2019 DISCHARGE DATE: 10/16/2019 DISPOSITION: [facility]. CONSULTATION DURING THIS ADMISSION: Orthopedic was consulted. Patient was seen by Dr. Hernandez. INVASIVE PROCEDURES DONE DURING THIS ADMISSION: None. IMAGING STUDIES OF SIGNIFICANCE: 1. A CT scan of the head and neck showed stable chronic intravascular changes. No evidence of acute pathology. There is a right frontal scalp hematoma. Stable multilevel degenerative arthropathy. No evidence of fracture or other acute C-spine injury. 2. A chest x-ray showed no evidence of acute pathology. A shoulder x-ray showed fracture of the distal clavicle. ADMISSION DIAGNOSIS: 1. Uncontrolled hypertension. 2. Fall with head trauma. 3. Urinary tract infection. 4. Diabetes. 5. History of CVA with mild right-sided weakness. DIAGNOSIS AT THE TIME OF DISCHARGE: 1. Status post mechanical fall resulting into a mild scalp hematoma to the right forehead and a right distal clavicle fracture. 2. Altered mental status secondary to global encephalopathy on presentation, resolved. 3. Recurrent urinary tract infections with culture positive for E. coli. 4. Severe uncontrolled hypertension. 5. Suspected syncopal episode, presumably from orthostatic hypotension. However, other etiologies will need to be ruled out, including possible cardiac. EKGs and echocardiogram from previous admissions have been for the most part unremarkable. The patient has been advised to follow up with Cardiology for possible outpatient Holter monitor. 6. Normocytic anemia. 7. History of insulin-dependent diabetes mellitus with A1c of 6.6. This also raises concern for possible hypoglycemic episodes in the past. The patient's insulin regimen has also been decreased during the hospital course. 8. Chronic kidney disease stage 4. 9. Mild left ventricular hypertrophy secondary to hypertensive heart disease associated with diastolic dysfunction. DISCHARGE MEDICATIONS: 1. Carvedilol 25 b.i.d. 2. Plavix 75 mg p.o. daily. 3. Melatonin 3 mg p.o. at bedtime. 4. Sennosides 8.6 p.o. at bedtime. 5. Atorvastatin 80 mg p.o. at bedtime. 6. Diltiazem 120 p.o. daily. 7. Isosorbide 20 mg b.i.d. 8. Duloxetine 60 mg p.o. daily. 9. Aldactazide 1 tab daily. 10. Hydralazine 50 mg 3 times per day. 11. Iron sulfate 325 p.o. daily. 12. Furosemide 40 mg p.o. daily. 13. Levofloxacin 500 p.o. daily. 14. [place]. 15. Insulin detemir 20 units subcutaneous daily. PRESENTING COMPLAINT: Fall. HISTORY OF PRESENTING COMPLAINT: Ms. Roth is an 79-year-old elderly female with multiple comorbidities, is also a resident of [facility]. The patient refers that she was using the commode after she finished work up to go to her room and the last thing she felt was that she was on the ground. According to Ms. Roth, this is probably not the first time she has had it. She says she has never had this episode lying down or sitting up. It usually happens in orthostatic. Unfortunately, on presentation her orthostatic vitals were not done. She has been intravascularly repleted. She has a history of diabetes mellitus with peripheral neuropathy and there is a very high probability that she also has autonomic neuropathy causing some of her possible orthostatic hypotension given her blackouts. As I said, on admission thorough investigations were done and were unremarkable. She was found to have a fracture to the right clavicle which was evaluated by Orthopedics and they recommended conservative management. Ms. Roth was monitored during the hospital course. All her other comorbidities were address during the hospital course. Her urinalysis came back positive for E. coli. She was started on antimicrobial therapy. This morning, Ms. Roth is feeling fairly stable. She has been evaluated by Physical Therapy yesterday and they recommended rehab. She was able to do 3 feet with minimum assist. Ms. Roth is therefore being discharged to [facility] rehab to continue with her physical taoist. Ms. Roth is also going to follow up with Cardiology to rule out at some point any possible cardiac etiology for her possible syncope. We have also advised that Ms. Roth follows up with Urology because of her frequent urinary tract infections to rule out any possible underlying urological abnormalities. She has had a renal ultrasound in 08/06/2019, which did not show any evidence of obstructive uropathy. All the discharge instructions have been discussed with Ms. Roth. She voiced understanding. Time spent for discharge is 35 minutes. cc: Juan Jose Richardson MD
[2019-10-16] MEDS ORDERED: LEVAQUIN PO ONE (12:57)
[2019-10-16] MEDS: LEVAQUIN 500 MG in NS 100 ML IV SCH (14:18)
== END 2019-10-16 15:20 | DRG 987 ==
LOC: ED 21:17 → SUATTDRO 10-13 04:52 → 3N 10-13 04:52 → 2N 10-13 06:16
PROVIDERS: ATTEND Internal Medicine